=== PATIENT | male | born 1975 | race Caucasian/White ===

== ENCOUNTER 2018-04-14 12:56 | Inpatient (IN) | payer SELFPAY ==
[2018-04-14 13:46] LABS: ADD MAN DIFF? NO; HAAIG REFLEX REFLEX FILED
[2018-04-14 13:52] LABS: WHITE BLOOD COUNT 10.3 10^3/ul (4.8-10.8)
[2018-04-14 13:52] LABS: BASOPHIL # 0.1 10^3/ul (0.0-0.1); BASOPHILS % 0.5 % (0.0-2.0); EOSINOPHILS % 0.4 % (0.0-7.0); HEMATOCRIT 38.4 % (42.0-52.0); HEMOGLOBIN 13.8 g/dl (14.0-18.0); LYMPHOCYTES # 1.2 10^3/ul (0.8-2.9); LYMPHOCYTES % 11.5 % (15.0-51.0); MEAN CORPUSCULAR HEMOGLOBIN 29.9 pg (29.0-33.0); MEAN CORPUSCULAR HGB CONC 35.9 g/dl (32.0-37.0); MEAN CORPUSCULAR VOLUME 83.3 fl (82.0-101.0); MEAN PLATELET VOLUME 10.9 fl (7.4-10.4); MONOCYTE # 1.5 10^3/ul (0.3-0.9); MONOCYTES % 14.1 % (0.0-11.0); NEUTROPHIL # 7.5 10^3/ul (1.6-7.5); NEUTROPHILS % 72.8 % (39.0-77.0); PLATELET COUNT 359 10^3/UL (140-415); RED BLOOD COUNT 4.61 10^6/ul (4.70-6.10); RED CELL DISTRIBUTION WIDTH 15.5 % (11.5-14.5)
[2018-04-14 14:08] LABS: LIPASE 48 U/L (23-300)
[2018-04-14 14:08] LABS: ALBUMIN 3.5 g/dl (3.3-4.9); ALBUMIN/GLOBULIN RATIO 0.79; ALKALINE PHOSPHATASE 176 IU/L (42-121); ANION GAP 13 (8-16); BILIRUBIN,INDIRECT 2.4 mg/dl (0-1.1); BILIRUBIN,TOTAL 16.9 mg/dl (0.2-1.3); BLOOD UREA NITROGEN 9 mg/dl (7-20); CALCIUM 8.5 mg/dl (8.4-10.2); CARBON DIOXIDE 28 mmol/L (21-31); CHLORIDE 102 mmol/L (97-110); CREATININE 0.98 mg/dl (0.61-1.24); GLUCOSE 122 mg/dl (70-220); SODIUM 139 mmol/L (135-144); TOTAL PROTEIN 7.9 g/dl (6.1-8.1)
[2018-04-14 14:11] LABS: ADD UMIC YES; UR ASCORBIC ACID NEGATIVE (NEGATIVE); UR BILIRUBIN (Dip) 2+ mg/dL (NEGATIVE); UR BLOOD (Dip) NEGATIVE (NEGATIVE); UR CLARITY SLIGHTLY CLOUDY (CLEAR); UR COLOR AMBER (YELLOW); UR GLUCOSE (Dip) NEGATIVE (NEGATIVE); UR GRANULAR CAST FEW /HPF (NONE SEEN); UR HYALINE CAST FEW /HPF (NONE SEEN); UR KETONES (Dip) NEGATIVE (NEGATIVE); UR LEUKOCYTE ESTERASE (Dip) NEGATIVE Leu/ul (NEGATIVE); UR MUCUS MANY /HPF (NONE SEEN); UR NITRITE (Dip) NEGATIVE (NEGATIVE); UR RBC 2 /HPF (0-5); UR SPECIFIC GRAVITY (Dip) 1.028 (1.003-1.030); UR SQUAMOUS EPITHELIAL CELL FEW /HPF (FEW); UR TOTAL PROTEIN (Dip) 1+ mg/dl (NEGATIVE); UR UROBILINOGEN (Dip) 2+ mg/dL (NEGATIVE); UR WBC 8 /HPF (0-5); UR WBC CAST FEW /HPF (NONE SEEN)
[2018-04-14 14:18] LABS: ALANINE AMINOTRANSFERASE 2977 IU/L (13-69)
[2018-04-14 14:23] LABS: AMPHETAMINE/METHAMPHETAMINE Negative (NEGATIVE); BARBITURATES Negative (NEGATIVE); BENZODIAZEPINES Negative (NEGATIVE); CANNABINOIDS Positive (NEGATIVE); COCAINE Negative (NEGATIVE); OPIATES Negative (NEGATIVE)
[2018-04-14] MEDS: LACTATED RINGER'S 1,000 ML IV (14:29)
[2018-04-14 14:33] LABS: ASPARTATE AMINO TRANSFERASE 3066 IU/L (15-46)
[2018-04-14 14:42] LABS: HEPATITIS B SURFACE ANTIGEN POSITIVE (NEGATIVE)
[2018-04-14 14:57] LABS: HEPATITIS C VIRAL ANTIBODY NEGATIVE (NEGATIVE)
[2018-04-14 15:02] LABS: HEPATITIS B CORE ANTIBODY REACTIVE (NEGATIVE); HIV 1&2 ANTIBODY REACTIVE (NEGATIVE)
[2018-04-14] MEDS: SOD CHLORIDE 0.9% 1,000 ML IV (16:45)
[2018-04-14] MEDS ORDERED: ONDANSETRON 4 MG INJ IV (17:00)
[2018-04-14] MEDS ORDERED: DOCUSATE SODIUM 100 MG CAP PO (17:00)
[2018-04-14] MEDS ORDERED: NA PHOSPHATE/BIPHOS 133 ML ENEMA PR (17:00)
[2018-04-14] MEDS ORDERED: BISACODYL (EC) 5 MG TAB PO (17:00)
[2018-04-14] MEDS ORDERED: NACL 0.9% 3 ML SYG IV (17:00)
[2018-04-14] MEDS ORDERED: BISACODYL 10 MG SUPP PR (17:00)
[2018-04-14] MEDS ORDERED: ACETAMINOPHEN 325 MG TAB PO (17:00)
[2018-04-14] MEDS ORDERED: HYDROCODONE/APAP (5/325) TAB PO (17:00)
[2018-04-14] MEDS ORDERED: IBUPROFEN 600 MG TAB PO (17:00)
[2018-04-14] MEDS ORDERED: MAGNESIUM HYDROXIDE 30ML CUP PO (17:00)
[2018-04-14 17:19] LABS: INR 1.25; PROTIME 15.9 Sec (11.9-14.9); PT RATIO 1.2
[2018-04-14 17:33] LABS: SALICYLATE < 1.0 mg/dl (5.0-30.0)
[2018-04-14 17:52] LABS: ACETAMINOPHEN < 10.0 ug/ml (10.0-30.0)
[2018-04-14 20:17] LABS: ETHANOL < 10.0 mg/dl
[2018-04-14 21:09] LABS: HEPATITIS B SURFACE ANTIBODY POSITIVE (NEGATIVE)
[2018-04-15 06:37] LABS: INR 1.24; PROTIME 15.8 Sec (11.9-14.9); PT RATIO 1.2
[2018-04-15 06:42] LABS: IRON 175 ug/dl (35-150)
[2018-04-15 06:50] LABS: ALBUMIN/GLOBULIN RATIO 0.78; ALKALINE PHOSPHATASE 155 IU/L (42-121); ANION GAP 10 (8-16); BILIRUBIN,INDIRECT 2.3 mg/dl (0-1.1); BILIRUBIN,TOTAL 13.6 mg/dl (0.2-1.3); BLOOD UREA NITROGEN 11 mg/dl (7-20); CARBON DIOXIDE 30 mmol/L (21-31); CHLORIDE 106 mmol/L (97-110); CREATININE 0.86 mg/dl (0.61-1.24); GLUCOSE 101 mg/dl (70-220); POTASSIUM 3.9 mmol/L (3.5-5.1); SODIUM 142 mmol/L (135-144); TOTAL PROTEIN 6.8 g/dl (6.1-8.1)
[2018-04-15 06:51] LABS: % IRON SATURATION 62 % SAT (22-52); TOTAL IRON BINDING CAPACITY 282 ug/dl (241-421)
[2018-04-15 07:00] LABS: ALANINE AMINOTRANSFERASE 2547 IU/L (13-69)
[2018-04-15 07:25] LABS: ASPARTATE AMINO TRANSFERASE 2577 IU/L (15-46)
[2018-04-15 07:53] LABS: HEMOGLOBIN A1C 5.4 % (0-5.9)
[2018-04-15] MEDS: ENOXAPARIN 40 MG/0.4 ML SYG SC (09:18)
[2018-04-15] MEDS: POLYETHYLENE GLYCOL 17 GM PACKET PO (12:25)
[2018-04-15] MEDS: SOD CHLORIDE 0.45% 1,000 ML IV (13:47)
[2018-04-16 07:52] LABS: ADD MAN DIFF? NO
[2018-04-16 07:59] LABS: WHITE BLOOD COUNT 9.3 10^3/ul (4.8-10.8)
[2018-04-16 07:59] LABS: BASOPHIL # 0.1 10^3/ul (0.0-0.1); BASOPHILS % 0.9 % (0.0-2.0); EOSINOPHILS # 0.2 10^3/ul (0.0-0.5); EOSINOPHILS % 1.6 % (0.0-7.0); HEMATOCRIT 38.3 % (42.0-52.0); HEMOGLOBIN 13.5 g/dl (14.0-18.0); LYMPHOCYTES # 1.5 10^3/ul (0.8-2.9); LYMPHOCYTES % 16.1 % (15.0-51.0); MEAN CORPUSCULAR HEMOGLOBIN 29.1 pg (29.0-33.0); MEAN CORPUSCULAR HGB CONC 35.2 g/dl (32.0-37.0); MEAN CORPUSCULAR VOLUME 82.5 fl (82.0-101.0); MEAN PLATELET VOLUME 12.2 fl (7.4-10.4); MONOCYTE # 1.2 10^3/ul (0.3-0.9); MONOCYTES % 12.8 % (0.0-11.0); NEUTROPHIL # 6.3 10^3/ul (1.6-7.5); NEUTROPHILS % 68.1 % (39.0-77.0); PLATELET COUNT 353 10^3/UL (140-415); RED BLOOD COUNT 4.64 10^6/ul (4.70-6.10); RED CELL DISTRIBUTION WIDTH 15.9 % (11.5-14.5)
[2018-04-16 08:07] LABS: AMMONIA 20 umol/l (9-30)
[2018-04-16 08:20] LABS: ALBUMIN 3.6 g/dl (3.3-4.9); ALKALINE PHOSPHATASE 193 IU/L (42-121); BILIRUBIN,INDIRECT 2.6 mg/dl (0-1.1); BILIRUBIN,TOTAL 16.2 mg/dl (0.2-1.3); TOTAL PROTEIN 8.2 g/dl (6.1-8.1)
[2018-04-16] MEDS: POLYETHYLENE GLYCOL 17 GM PACKET PO (08:26)
[2018-04-16 08:28] LABS: ANION GAP 16 (8-16); BLOOD UREA NITROGEN 8 mg/dl (7-20); CALCIUM 8.8 mg/dl (8.4-10.2); CARBON DIOXIDE 29 mmol/L (21-31); CHLORIDE 101 mmol/L (97-110); GLUCOSE 79 mg/dl (70-220); MAGNESIUM 2.1 mg/dl (1.7-2.5); PHOSPHORUS 4.1 mg/dl (2.5-4.9); POTASSIUM 4.1 mmol/L (3.5-5.1); SODIUM 142 mmol/L (135-144)
[2018-04-16] MEDS: ENOXAPARIN 40 MG/0.4 ML SYG SC (08:29)
[2018-04-16] MEDS: SOD CHLORIDE 0.45% 1,000 ML IV (08:29)
[2018-04-16 09:30] LABS: ALANINE AMINOTRANSFERASE 3776 IU/L (13-69)
[2018-04-16 09:44] LABS: ASPARTATE AMINO TRANSFERASE 4529 IU/L (15-46)
[2018-04-16 12:16] LABS: HEPATITIS B SURFACE ANTIGEN REACTIVE (NON-REACTIVE)
[2018-04-17] MEDS: SOD CHLORIDE 0.45% 1,000 ML IV (04:45)
[2018-04-17 06:09] LABS: ADD MAN DIFF? NO
[2018-04-17 06:10] LABS: BASOPHIL # 0.1 10^3/ul (0.0-0.1); BASOPHILS % 0.7 % (0.0-2.0); EOSINOPHILS # 0.2 10^3/ul (0.0-0.5); EOSINOPHILS % 1.8 % (0.0-7.0); HEMATOCRIT 36.4 % (42.0-52.0); HEMOGLOBIN 13.1 g/dl (14.0-18.0); LYMPHOCYTES # 1.8 10^3/ul (0.8-2.9); LYMPHOCYTES % 20.5 % (15.0-51.0); MEAN CORPUSCULAR HEMOGLOBIN 29.2 pg (29.0-33.0); MEAN CORPUSCULAR VOLUME 81.3 fl (82.0-101.0); MEAN PLATELET VOLUME 11.2 fl (7.4-10.4); MONOCYTE # 1.1 10^3/ul (0.3-0.9); MONOCYTES % 12.3 % (0.0-11.0); NEUTROPHIL # 5.7 10^3/ul (1.6-7.5); PLATELET COUNT 354 10^3/UL (140-415); RED BLOOD COUNT 4.48 10^6/ul (4.70-6.10)
[2018-04-17 06:10] LABS: WHITE BLOOD COUNT 8.9 10^3/ul (4.8-10.8)
[2018-04-17 06:44] LABS: MAGNESIUM 2.1 mg/dl (1.7-2.5)
[2018-04-17 06:44] LABS: ALBUMIN 3.2 g/dl (3.3-4.9); ALBUMIN/GLOBULIN RATIO 0.76; ALKALINE PHOSPHATASE 172 IU/L (42-121); ANION GAP 11 (8-16); BILIRUBIN,INDIRECT 2.3 mg/dl (0-1.1); BILIRUBIN,TOTAL 13.1 mg/dl (0.2-1.3); BLOOD UREA NITROGEN 8 mg/dl (7-20); CALCIUM 8.6 mg/dl (8.4-10.2); CARBON DIOXIDE 28 mmol/L (21-31); CHLORIDE 107 mmol/L (97-110); CREATININE 0.86 mg/dl (0.61-1.24); GLUCOSE 89 mg/dl (70-220); POTASSIUM 4.1 mmol/L (3.5-5.1); SODIUM 142 mmol/L (135-144); TOTAL PROTEIN 7.4 g/dl (6.1-8.1)
[2018-04-17 07:24] LABS: ALANINE AMINOTRANSFERASE 3762 IU/L (13-69)
[2018-04-17 08:08] LABS: ASPARTATE AMINO TRANSFERASE 4395 IU/L (15-46)
[2018-04-17] MEDS: POLYETHYLENE GLYCOL 17 GM PACKET PO (08:51)
[2018-04-17] MEDS: ENOXAPARIN 40 MG/0.4 ML SYG SC (08:57)
[2018-04-17 09:36] LABS: LYMPHOCYTE - % CD4 (HELPER) 47 % (30-61); LYMPHOCYTE - %CD8 (SUPPRESSOR) 35 % (12-42); LYMPHOCYTE - ABSOLUTE 1173 cells/uL (850-3900); LYMPHOCYTE - ABSOLUTE CD4 551 cells/uL (490-1740); LYMPHOCYTE - ABSOLUTE CD8 411 cells/uL (180-1170); LYMPHOCYTE - CD4/CD8 RATIO 1.34 (0.86-5.00)
[2018-04-17] MEDS ORDERED: oxyCODONE 5 MG TAB PO (11:00)
[2018-04-17] MEDS: DIPHENHYDRAMINE 50 MG INJ IV ×2 (11:27→20:18)
[2018-04-17 18:37] LABS: EBV VIRAL CAPSID AG AB (IGG) >750.00 U/mL; EBV VIRAL CAPSID AG AB (IGM) <36.00 U/mL
[2018-04-18 06:35] LABS: MAGNESIUM 2.3 mg/dl (1.7-2.5)
[2018-04-18 06:36] LABS: ALBUMIN 3.4 g/dl (3.3-4.9); ALBUMIN/GLOBULIN RATIO 0.75; ALKALINE PHOSPHATASE 164 IU/L (42-121); ANION GAP 15 (8-16); BILIRUBIN,INDIRECT 2.3 mg/dl (0-1.1); BILIRUBIN,TOTAL 11.7 mg/dl (0.2-1.3); BLOOD UREA NITROGEN 9 mg/dl (7-20); CALCIUM 8.9 mg/dl (8.4-10.2); CARBON DIOXIDE 29 mmol/L (21-31); CHLORIDE 105 mmol/L (97-110); CREATININE 0.99 mg/dl (0.61-1.24); GLUCOSE 89 mg/dl (70-220); SODIUM 144 mmol/L (135-144); TOTAL PROTEIN 7.9 g/dl (6.1-8.1)
[2018-04-18] MEDS: POLYETHYLENE GLYCOL 17 GM PACKET PO (08:44)
[2018-04-18] MEDS: DIPHENHYDRAMINE 50 MG INJ IV ×2 (08:45→18:13)
[2018-04-18] MEDS: ENOXAPARIN 40 MG/0.4 ML SYG SC (08:46)
[2018-04-18 09:28] LABS: ALANINE AMINOTRANSFERASE 3549 IU/L (13-69); ASPARTATE AMINO TRANSFERASE 3350 IU/L (15-46)
[2018-04-19] MEDS: DIPHENHYDRAMINE 50 MG INJ IV (02:33)
[2018-04-19 06:05] LABS: ADD MAN DIFF? NO
[2018-04-19 06:08] LABS: WHITE BLOOD COUNT 9.9 10^3/ul (4.8-10.8)
[2018-04-19 06:08] LABS: BASOPHIL # 0.1 10^3/ul (0.0-0.1); BASOPHILS % 0.9 % (0.0-2.0); EOSINOPHILS # 0.2 10^3/ul (0.0-0.5); EOSINOPHILS % 2.3 % (0.0-7.0); HEMATOCRIT 36.3 % (42.0-52.0); HEMOGLOBIN 12.7 g/dl (14.0-18.0); LYMPHOCYTES # 2.4 10^3/ul (0.8-2.9); LYMPHOCYTES % 24.7 % (15.0-51.0); MEAN CORPUSCULAR HEMOGLOBIN 28.8 pg (29.0-33.0); MEAN CORPUSCULAR VOLUME 82.3 fl (82.0-101.0); MEAN PLATELET VOLUME 11.1 fl (7.4-10.4); MONOCYTE # 1.3 10^3/ul (0.3-0.9); MONOCYTES % 13.3 % (0.0-11.0); NEUTROPHIL # 5.7 10^3/ul (1.6-7.5); NEUTROPHILS % 58.1 % (39.0-77.0); PLATELET COUNT 373 10^3/UL (140-415); RED BLOOD COUNT 4.41 10^6/ul (4.70-6.10); RED CELL DISTRIBUTION WIDTH 17.3 % (11.5-14.5)
[2018-04-19 06:36] LABS: MAGNESIUM 2.2 mg/dl (1.7-2.5)
[2018-04-19 06:39] LABS: ALBUMIN 3.3 g/dl (3.3-4.9); ALBUMIN/GLOBULIN RATIO 0.78; ALKALINE PHOSPHATASE 150 IU/L (42-121); ANION GAP 11 (8-16); BILIRUBIN,INDIRECT 1.8 mg/dl (0-1.1); BLOOD UREA NITROGEN 13 mg/dl (7-20); CALCIUM 8.5 mg/dl (8.4-10.2); CARBON DIOXIDE 32 mmol/L (21-31); CHLORIDE 107 mmol/L (97-110); CREATININE 1.02 mg/dl (0.61-1.24); GLUCOSE 77 mg/dl (70-220); POTASSIUM 4.3 mmol/L (3.5-5.1); SODIUM 146 mmol/L (135-144); TOTAL PROTEIN 7.5 g/dl (6.1-8.1)
[2018-04-19 07:02] LABS: ALANINE AMINOTRANSFERASE 2313 IU/L (13-69); ASPARTATE AMINO TRANSFERASE 1478 IU/L (15-46)
[2018-04-19] MEDS: POLYETHYLENE GLYCOL 17 GM PACKET PO (08:37)
[2018-04-19] MEDS: ENOXAPARIN 40 MG/0.4 ML SYG SC (08:39)
[2018-04-19 15:31] LABS: HEPATITIS B DELTA ANTIBODY NEGATIVE
== END 2018-04-19 11:05 | disposition home or self-care (01) | DRG 443 ==
LOC: FTE 12:56 → MS2 16:50
DX: B16.9 Acute hepatitis B without delta-agent and without hepatic coma (principal); K59.00 Constipation, unspecified; Z87.891 Personal history of nicotine dependence
CPT/HCPCS: 36415; 74176; 76705; 80048; 80053; 80076; 80307; 81001; 82140; 82728; 83036; 83540; 83690; 83735; 84100; 85025; 85610; 86360; 86664; 86692; 86701; 86703; 86704; 86706; 86709; 86803; 87340; 87536; 96360; 96361; 99285-25

== ENCOUNTER 2018-07-15 12:31 | Inpatient (IN) | payer MEDICAID ==
[2018-07-15 13:19] LABS: HEMOGLOBIN 13.8 g/dl (14.0-18.0); MEAN CORPUSCULAR HEMOGLOBIN 28.6 pg (29.0-33.0); MEAN CORPUSCULAR HGB CONC 33.7 g/dl (32.0-37.0); MEAN CORPUSCULAR VOLUME 84.9 fl (82.0-101.0); MEAN PLATELET VOLUME 11.1 fl (7.4-10.4); PLATELET COUNT 130 10^3/UL (140-415); POSITIVE DIFF @See below; RED BLOOD COUNT 4.83 10^6/ul (4.70-6.10); RED CELL DISTRIBUTION WIDTH 13.5 % (11.5-14.5)
[2018-07-15 13:19] LABS: WHITE BLOOD COUNT 3.1 10^3/ul (4.8-10.8)
[2018-07-15 13:25] LABS: ADD MAN DIFF? YES
[2018-07-15 13:32] LABS: ADD UMIC YES; UR ASCORBIC ACID NEGATIVE (NEGATIVE); UR BILIRUBIN (Dip) NEGATIVE (NEGATIVE); UR BLOOD (Dip) NEGATIVE (NEGATIVE); UR CLARITY CLEAR (CLEAR); UR COLOR YELLOW (YELLOW); UR GLUCOSE (Dip) NEGATIVE (NEGATIVE); UR KETONES (Dip) TRACE mg/dL (NEGATIVE); UR LEUKOCYTE ESTERASE (Dip) NEGATIVE Leu/ul (NEGATIVE); UR NITRITE (Dip) NEGATIVE (NEGATIVE); UR RBC 0 /HPF (0-5); UR SPECIFIC GRAVITY (Dip) 1.023 (1.003-1.030); UR TOTAL PROTEIN (Dip) 1+ mg/dl (NEGATIVE); UR UROBILINOGEN (Dip) 2+ mg/dL (NEGATIVE); UR WBC 4 /HPF (0-5)
[2018-07-15] MEDS: ONDANSETRON 4 MG INJ IV (13:34)
[2018-07-15] MEDS: LIDOCAINE/MYLANTA 40 ML BTL PO (13:34)
[2018-07-15] MEDS: FAMOTIDINE 20 MG INJ IV (13:34)
[2018-07-15] MEDS: BELLADONNA/PHENOBARBITAL TAB PO (13:34)
[2018-07-15] MEDS: SOD CHLORIDE 0.9% 500 ML IV (13:35)
[2018-07-15 13:36] LABS: ALANINE AMINOTRANSFERASE 806 IU/L (13-69); ALBUMIN 3.4 g/dl (3.3-4.9); ALBUMIN/GLOBULIN RATIO 0.73; ALKALINE PHOSPHATASE 134 IU/L (42-121); ANION GAP 14 (8-16); BILIRUBIN,INDIRECT 0.2 mg/dl (0-1.1); BILIRUBIN,TOTAL 0.2 mg/dl (0.2-1.3); BLOOD UREA NITROGEN 16 mg/dl (7-20); CALCIUM 8.6 mg/dl (8.4-10.2); CARBON DIOXIDE 26 mmol/L (21-31); CHLORIDE 101 mmol/L (97-110); CREATININE 0.88 mg/dl (0.61-1.24); GLUCOSE 115 mg/dl (70-220); LIPASE 107 U/L (23-300); POTASSIUM 4.3 mmol/L (3.5-5.1); SODIUM 137 mmol/L (135-144)
[2018-07-15 13:46] LABS: AMPHETAMINE/METHAMPHETAMINE Negative (NEGATIVE); BARBITURATES Negative (NEGATIVE); BENZODIAZEPINES Negative (NEGATIVE); CANNABINOIDS Positive (NEGATIVE); COCAINE Negative (NEGATIVE); OPIATES Negative (NEGATIVE)
[2018-07-15 13:51] LABS: ASPARTATE AMINO TRANSFERASE 908 IU/L (15-46)
[2018-07-15 14:42] LABS: BAND NEUTROPHILS #M 1.1 10^3/ul (0.0-0.6); BAND NEUTROPHILS % (M) 38 % (0-4); BASOPHILS % (M) 1 % (0-2); GIANT THROMBO% (M) 2 % (0-0); LYMPHOCYTES #M 0.7 10^3/ul (0.8-2.9); LYMPHOCYTES % (M) 23 % (15-51); METAMYELOCYTES %M 1 % (0-0); MONOCYTE #M 0.1 10^3/ul (0.3-0.9); MONOCYTES % (M) 5 % (0-11); PLASMAC%(M) 1 % (0); PLATELET ESTIMATE DECREASED; SEGMENTED NEUTROPHILS (M) % 31 % (39-77); SMUDGE%M 4 % (0-0)
[2018-07-15] MEDS ORDERED: ACETAMINOPHEN 325 MG TAB PO ×2 (17:00→18:00)
[2018-07-15] MEDS ORDERED: ONDANSETRON 4 MG INJ IV (17:00)
[2018-07-15] MEDS: SOD CHLORIDE 0.9% 100 ML (17:22)
[2018-07-15] MEDS: IOHEXOL 300MG/ML 150 ML BTL (17:23)
[2018-07-15] MEDS ORDERED: NACL 0.9% 3 ML SYG IV (18:00)
[2018-07-15 19:42] LABS: LACTATE DEHYDROGENASE 911 IU/L (313-618)
[2018-07-15 20:14] LABS: HEPATITIS B SURFACE ANTIGEN NEGATIVE (NEGATIVE)
[2018-07-15 20:31] LABS: HEPATITIS B CORE ANTIBODY REACTIVE (NEGATIVE); HIV 1&2 ANTIBODY REACTIVE (NEGATIVE)
[2018-07-15 21:29] LABS: HEPATITIS B SURFACE ANTIBODY INDETERMINATE (NEGATIVE)
[2018-07-16 10:24] LABS: ADD MAN DIFF? NO
[2018-07-16 10:35] LABS: WHITE BLOOD COUNT 3.1 10^3/ul (4.8-10.8)
[2018-07-16 10:35] LABS: BASOPHILS % 0.3 % (0.0-2.0); HEMATOCRIT 39.8 % (42.0-52.0); HEMOGLOBIN 13.3 g/dl (14.0-18.0); LYMPHOCYTES # 0.8 10^3/ul (0.8-2.9); LYMPHOCYTES % 24.2 % (15.0-51.0); MEAN CORPUSCULAR HEMOGLOBIN 28.5 pg (29.0-33.0); MEAN CORPUSCULAR HGB CONC 33.4 g/dl (32.0-37.0); MEAN CORPUSCULAR VOLUME 85.4 fl (82.0-101.0); MEAN PLATELET VOLUME 11.7 fl (7.4-10.4); MONOCYTE # 0.3 10^3/ul (0.3-0.9); MONOCYTES % 8.4 % (0.0-11.0); NEUTROPHIL # 2.1 10^3/ul (1.6-7.5); NEUTROPHILS % 66.8 % (39.0-77.0); PLATELET COUNT 127 10^3/UL (140-415); POSITIVE DIFF @See below; RED BLOOD COUNT 4.66 10^6/ul (4.70-6.10); RED CELL DISTRIBUTION WIDTH 13.4 % (11.5-14.5)
[2018-07-16 11:16] LABS: ALANINE AMINOTRANSFERASE 579 IU/L (13-69); ALBUMIN 3.1 g/dl (3.3-4.9); ALKALINE PHOSPHATASE 123 IU/L (42-121); ANION GAP 11 (8-16); ASPARTATE AMINO TRANSFERASE 583 IU/L (15-46); BILIRUBIN,INDIRECT 0.3 mg/dl (0-1.1); BILIRUBIN,TOTAL 0.3 mg/dl (0.2-1.3); BLOOD UREA NITROGEN 13 mg/dl (7-20); CALCIUM 8.4 mg/dl (8.4-10.2); CARBON DIOXIDE 27 mmol/L (21-31); CHLORIDE 100 mmol/L (97-110); CREATININE 0.85 mg/dl (0.61-1.24); GLUCOSE 96 mg/dl (70-220); POTASSIUM 4.1 mmol/L (3.5-5.1); SODIUM 134 mmol/L (135-144); TOTAL PROTEIN 7.5 g/dl (6.1-8.1)
[2018-07-16 12:20] LABS: BAND NEUTROPHILS #M 0.9 10^3/ul (0.0-0.6); BAND NEUTROPHILS % (M) 30 % (0-4); GIANT THROMBO% (M) 1 % (0-0); LYMPHOCYTES #M 0.3 10^3/ul (0.8-2.9); LYMPHOCYTES % (M) 12 % (15-51); MONOCYTE #M 0.3 10^3/ul (0.3-0.9); MONOCYTES % (M) 11 % (0-11); PLATELET ESTIMATE DECREASED; REACTIVE LYMPHOCYTES #M 0.1 10^3/ul (0.0-0.0); REACTIVE LYMPHOCYTES% (M) 4 % (0-0); SEG NEUT #M 1.4 10^3/ul (1.6-7.5); SEGMENTED NEUTROPHILS (M) % 43 % (39-77); SMUDGE%M 14 % (0-0)
[2018-07-17 11:16] LABS: LYMPHOCYTE - % CD4 (HELPER) 39 % (30-61); LYMPHOCYTE - %CD8 (SUPPRESSOR) 45 % (12-42); LYMPHOCYTE - ABSOLUTE 897 cells/uL (850-3900); LYMPHOCYTE - ABSOLUTE CD4 353 cells/uL (490-1740); LYMPHOCYTE - ABSOLUTE CD8 401 cells/uL (180-1170); LYMPHOCYTE - CD4/CD8 RATIO 0.88 (0.86-5.00)
[2018-07-17 16:09] LABS: RAPID PLASMA REAGIN NONREACTIVE (NR)
[2018-07-17 19:37] LABS: EBV NUCLEAR AG (EBNA) AB (IGG) >600.00 U/mL; EBV VIRAL CAPSID AG AB (IGG) >750.00 U/mL; EBV VIRAL CAPSID AG AB (IGM) <36.00 U/mL
[2018-07-18 17:02] LABS: NIL 0.11 IU/mL; QUANTIFERON(R)-TB GOLD NEGATIVE (NEGATIVE); TB-NIL <0.00 IU/mL
[2018-07-23 20:03] LABS: HEPATITIS B DELTA ANTIBODY POSITIVE
== END 2018-07-17 11:42 | disposition home or self-care (01) | DRG 977 ==
LOC: E/R 12:31 → PP2 16:51
DX: B20 Human immunodeficiency virus [HIV] disease (principal); B16.9 Acute hepatitis B without delta-agent and without hepatic coma; F12.10 Cannabis abuse, uncomplicated; F14.10 Cocaine abuse, uncomplicated; R59.1 Generalized enlarged lymph nodes
CPT/HCPCS: 36415; 74177; 80053; 80307; 81001; 83605; 83615; 83690; 85025; 86360; 86480; 86592; 86664; 86692; 86701; 86703; 86704; 86706; 87040; 87340; 87536; 96374; 96375; 99285-25

== ENCOUNTER 2019-05-14 16:45 | Inpatient (IN) | payer MEDICAID, OTHER ==
[2019-05-14] MEDS: VANCOMYCIN 1 GM (PMX) 250 ML IVPB (18:21)
[2019-05-14] MEDS: IODIXANOL LOCM 100 ML BTL (18:29)
[2019-05-14] MEDS: SODIUM CHLORIDE 0.9% 1L BAG IV* (18:29)
[2019-05-14 18:38] LABS: ABNORMAL IP MESSAGE 1; HEMATOCRIT 36.6 % (42.0-52.0); HEMOGLOBIN 12.3 g/dl (14.0-18.0); MEAN CORPUSCULAR HGB CONC 33.6 g/dl (32.0-37.0); MEAN CORPUSCULAR VOLUME 80.3 fl (82.0-101.0); MEAN PLATELET VOLUME 10.7 fl (7.4-10.4); PLATELET COUNT 353 10^3/UL (140-415); POSITIVE DIFF @See below; RED BLOOD COUNT 4.56 10^6/ul (4.70-6.10); RED CELL DISTRIBUTION WIDTH 14.6 % (11.5-14.5)
[2019-05-14 18:43] LABS: ADD MAN DIFF? YES
[2019-05-14] MEDS: SOD CHLORIDE 0.9% 100 ML (18:49)
[2019-05-14] MEDS: IOHEXOL 300MG/ML 150 ML BTL (18:49)
[2019-05-14] MEDS: PIPER-TAZO 3.375 GM IV (PMX) 100 ML IVPB ×2 (18:51→23:37)
[2019-05-14] MEDS: FENTAnyl 50 MCG/ML VIAL IV (18:51)
[2019-05-14 18:54] LABS: ALANINE AMINOTRANSFERASE 22 IU/L (13-69); ALBUMIN 3.7 g/dl (3.3-4.9); ALBUMIN/GLOBULIN RATIO 0.84; ALKALINE PHOSPHATASE 140 IU/L (42-121); ANION GAP 20 (5-13); ASPARTATE AMINO TRANSFERASE 53 IU/L (15-46); BILIRUBIN,INDIRECT 0.7 mg/dl (0-1.1); BILIRUBIN,TOTAL 0.7 mg/dl (0.2-1.3); BLOOD UREA NITROGEN 44 mg/dl (7-20); CALCIUM 8.8 mg/dl (8.4-10.2); CARBON DIOXIDE 21 mmol/L (21-31); CHLORIDE 91 mmol/L (97-110); GLUCOSE 89 mg/dl (70-220); POTASSIUM 4.9 mmol/L (3.5-5.1); SODIUM 132 mmol/L (135-144); TOTAL PROTEIN 8.1 g/dl (6.1-8.1)
[2019-05-14 18:57] LABS: INR 1.18; PROTIME 15.1 Sec (11.9-14.9); PT RATIO 1.2
[2019-05-14 18:58] LABS: PARTIAL THROMBOPLASTIN TIME 40.7 Sec (23.0-35.0)
[2019-05-14 19:00] LABS: Estimated GFR 33 mL/min (>60)
[2019-05-14 19:06] LABS: TROPONIN-I 0.043 ng/ml (0.000-0.120)
[2019-05-14 19:07] LABS: CREATININE 2.19 mg/dl (0.61-1.24)
[2019-05-14] MEDS: CLINDAMYCIN 900 MG/D5W (PMX) 50 ML IVPB (19:44)
[2019-05-14 19:59] LABS: ADD UMIC YES; UR ASCORBIC ACID NEGATIVE (NEGATIVE); UR BACTERIA FEW /HPF (NONE SEEN); UR BILIRUBIN (Dip) NEGATIVE (NEGATIVE); UR BLOOD (Dip) 1+ mg/dL (NEGATIVE); UR CLARITY CLOUDY (CLEAR); UR COLOR YELLOW (YELLOW); UR GLUCOSE (Dip) NEGATIVE (NEGATIVE); UR GRANULAR CAST FEW /HPF (NONE SEEN); UR KETONES (Dip) NEGATIVE (NEGATIVE); UR LEUKOCYTE ESTERASE (Dip) NEGATIVE Leu/ul (NEGATIVE); UR NITRITE (Dip) NEGATIVE (NEGATIVE); UR RBC 0 /HPF (0-5); UR SPECIFIC GRAVITY (Dip) 1.026 (1.003-1.030); UR TOTAL PROTEIN (Dip) 1+ mg/dl (NEGATIVE); UR UROBILINOGEN (Dip) NEGATIVE (NEGATIVE); UR WBC 5 /HPF (0-5)
[2019-05-14 20:12] LABS: AMPHETAMINE/METHAMPHETAMINE Negative (NEGATIVE); BARBITURATES Negative (NEGATIVE); BENZODIAZEPINES Negative (NEGATIVE); CANNABINOIDS Positive (NEGATIVE); COCAINE Negative (NEGATIVE); OPIATES Negative (NEGATIVE)
[2019-05-14] MEDS: POLYMYXIN/BACITRACIN 1L IRRIG IRR (20:20)
[2019-05-14 20:25] LABS: ANISOCYTOSIS 2+ (0-0); BAND NEUTROPHILS #M 3.5 10^3/ul (0.0-0.6); BAND NEUTROPHILS % (M) 27 % (0-4); BURR CELLS 3+ (0-0); ERYTHROBLAST% (NRBC) (M) 1 % (0-0); GIANT THROMBO% (M) 2 % (0-0); LYMPHOCYTES #M 0.9 10^3/ul (0.8-2.9); LYMPHOCYTES % (M) 7 % (15-51); METAMYELOCYTES #M 0.1 10^3/ul (0.0-0.0); METAMYELOCYTES %M 1 % (0-0); MONOCYTE #M 0.9 10^3/ul (0.3-0.9); MONOCYTES % (M) 7 % (0-11); MYELOCYTES #M 0.2 10^3/ul (0.0-0.0); MYELOCYTES % (M) 2 % (0-0); POIKILOCYTOSIS 3+ (0-0); POLYCHROMASIA 1+ (0-0); SEG NEUT #M 7.7 10^3/ul (1.6-7.5); SEGMENTED NEUTROPHILS (M) % 56 % (39-77); SMUDGE%M 18 % (0-0)
[2019-05-14] MEDS ORDERED: FENTAnyl 50 MCG/ML VIAL ×4 (20:25→21:31)
[2019-05-14] MEDS ORDERED: ROCURONIUM 50 MG INJ (20:25)
[2019-05-14] MEDS ORDERED: PROPOFOL 20 ML (20:25)
[2019-05-14] MEDS ORDERED: SUCCINYLCHOLINE CHLORIDE 100 MG/5 ML SYG IV (20:25)
[2019-05-14] MEDS ORDERED: LIDOCAINE 100 MG SYRINGE (20:25)
[2019-05-14] MEDS ORDERED: ONDANSETRON 4 MG INJ IV ×2 (20:30→22:00)
[2019-05-14] MEDS ORDERED: DIPHENHYDRAMINE 50 MG INJ IV ×2 (20:30→22:00)
[2019-05-14] MEDS ORDERED: ALBUTEROL 0.083% (NEB) 2.5 MG/3 ML AMP HHN ×2 (20:30→22:00)
[2019-05-14] MEDS ORDERED: FENTAnyl 50 MCG/ML VIAL IV ×6 (20:30→22:00)
[2019-05-14] MEDS ORDERED: MEPERIDINE 25 MG INJ IV ×2 (20:30→22:00)
[2019-05-14] MEDS ORDERED: METOCLOPRAMIDE 10 MG INJ IV ×2 (20:30→22:00)
[2019-05-14] MEDS ORDERED: HYDROmorphONE 1 MG/5 ML IV SYRINGE IV ×3 (20:30)
[2019-05-14] MEDS ORDERED: VANCOMYCIN IV PER PHARMACY XX (21:00)
[2019-05-14] MEDS ORDERED: SUGAMMADEX SODIUM 200 MG/2 ML VIAL IV (21:27)
[2019-05-14] MEDS ORDERED: MIDAZOLAM 1 MG/ML 2 ML INJ (21:34)
[2019-05-14] MEDS ORDERED: HYDROmorphONE 0.5 MG/0.5 ML SYG IV ×3 (22:00)
[2019-05-14 22:46] LABS: LACTIC ACID 4.9 mmol/L (0.5-2.0)
[2019-05-15] MEDS: SOD CHLORIDE 0.9% 1,000 ML IV ×6 (00:01→19:07)
[2019-05-15] MEDS: VANCOMYCIN HCL 1.25 GM in SOD CHLORIDE 0.9% 250 ML IVPB (00:01)
[2019-05-15 01:26] LABS: LACTIC ACID 3.1 mmol/L (0.5-2.0)
[2019-05-15] MEDS: ACETAMINOPHEN 650MG/20.3ML CUP PO ×3 (04:27→21:03)
[2019-05-15 05:01] LABS: ABNORMAL IP MESSAGE 1; HEMATOCRIT 31.1 % (42.0-52.0); HEMOGLOBIN 10.2 g/dl (14.0-18.0); MEAN CORPUSCULAR HEMOGLOBIN 27.1 pg (29.0-33.0); MEAN CORPUSCULAR HGB CONC 32.8 g/dl (32.0-37.0); MEAN CORPUSCULAR VOLUME 82.5 fl (82.0-101.0); MEAN PLATELET VOLUME 10.8 fl (7.4-10.4); PLATELET COUNT 298 10^3/UL (140-415); POSITIVE DIFF @See below; RED BLOOD COUNT 3.77 10^6/ul (4.70-6.10)
[2019-05-15 05:01] LABS: WHITE BLOOD COUNT 7.6 10^3/ul (4.8-10.8)
[2019-05-15 05:16] LABS: ADD MAN DIFF? YES
[2019-05-15] MEDS: PANTOPRAZOLE 40 MG INJ IV (05:22)
[2019-05-15] MEDS: PIPER-TAZO 3.375 GM IV (PMX) 100 ML IVPB ×4 (05:22→23:42)
[2019-05-15 05:27] LABS: ALANINE AMINOTRANSFERASE 24 IU/L (13-69); ALBUMIN 2.6 g/dl (3.3-4.9); ALBUMIN/GLOBULIN RATIO 0.74; ALKALINE PHOSPHATASE 103 IU/L (42-121); ANION GAP 11 (5-13); ASPARTATE AMINO TRANSFERASE 52 IU/L (15-46); BILIRUBIN,INDIRECT 0.6 mg/dl (0-1.1); BILIRUBIN,TOTAL 0.6 mg/dl (0.2-1.3); BLOOD UREA NITROGEN 36 mg/dl (7-20); CALCIUM 7.5 mg/dl (8.4-10.2); CARBON DIOXIDE 18 mmol/L (21-31); CHLORIDE 104 mmol/L (97-110); CREATININE 1.41 mg/dl (0.61-1.24); Estimated GFR 55 mL/min (>60); GLUCOSE 96 mg/dl (70-220); POTASSIUM 4.7 mmol/L (3.5-5.1); SODIUM 133 mmol/L (135-144); TOTAL PROTEIN 6.1 g/dl (6.1-8.1)
[2019-05-15] MEDS: CLINDAMYCIN 600 MG/D5W (PMX) 50 ML IVPB ×3 (06:34→21:03)
[2019-05-15 08:16] LABS: ANISOCYTOSIS 1+ (0-0); BAND NEUTROPHILS #M 2.8 10^3/ul (0.0-0.6); BAND NEUTROPHILS % (M) 38 % (0-4); BURR CELLS 2+ (0-0); EOSINOPHILS % (M) 1 % (0-7); LYMPHOCYTES #M 1.2 10^3/ul (0.8-2.9); LYMPHOCYTES % (M) 16 % (15-51); MONOCYTE #M 0.3 10^3/ul (0.3-0.9); MONOCYTES % (M) 4 % (0-11); PLATELET ESTIMATE NORMAL; POIKILOCYTOSIS 3+ (0-0); POLYCHROMASIA 3+ (0-0); REACTIVE LYMPHOCYTES #M 0.2 10^3/ul (0.0-0.0); REACTIVE LYMPHOCYTES% (M) 3 % (0-0); SEG NEUT #M 3.1 10^3/ul (1.6-7.5); SEGMENTED NEUTROPHILS (M) % 38 % (39-77); SMUDGE%M 7 % (0-0)
[2019-05-15] MEDS: morphine 4 MG/ML VIAL IV ×3 (09:50→21:03)
[2019-05-15] MEDS ORDERED: PHENYLephrine 20MG IN 250 ML 250 ML IV (10:00)
[2019-05-15] MEDS: VANCOMYCIN 750 MG (PMX) 250 ML IVPB ×2 (12:14→23:42)
[2019-05-15 13:00] LABS: CREATININE,URINE RANDOM 29.31 mg/dl (20-370)
[2019-05-15 13:10] LABS: SODIUM,URINE RANDOM < 13 mmol/L (30-90)
[2019-05-15] MEDS ORDERED: VANCOMYCIN HCL 1.25 GM in SOD CHLORIDE 0.9% 250 ML IVPB (16:00)
[2019-05-16] MEDS: SOD CHLORIDE 0.9% 1,000 ML IV ×2 (03:04→17:37)
[2019-05-16] MEDS: morphine 4 MG/ML VIAL IV ×4 (03:04→21:27)
[2019-05-16 05:29] LABS: ABNORMAL IP MESSAGE 1; HEMATOCRIT 26.2 % (42.0-52.0); HEMOGLOBIN 8.9 g/dl (14.0-18.0); MEAN CORPUSCULAR HEMOGLOBIN 26.8 pg (29.0-33.0); MEAN CORPUSCULAR VOLUME 78.9 fl (82.0-101.0); MEAN PLATELET VOLUME 10.9 fl (7.4-10.4); PLATELET COUNT 329 10^3/UL (140-415); POSITIVE DIFF @See below; RED BLOOD COUNT 3.32 10^6/ul (4.70-6.10); RED CELL DISTRIBUTION WIDTH 14.8 % (11.5-14.5)
[2019-05-16 05:29] LABS: WHITE BLOOD COUNT 15.2 10^3/ul (4.8-10.8)
[2019-05-16] MEDS: PIPER-TAZO 3.375 GM IV (PMX) 100 ML IVPB ×3 (05:31→17:36)
[2019-05-16] MEDS: CLINDAMYCIN 600 MG/D5W (PMX) 50 ML IVPB ×3 (05:31→22:00)
[2019-05-16] MEDS: PANTOPRAZOLE 40 MG INJ IV (05:31)
[2019-05-16 05:33] LABS: ADD MAN DIFF? YES
[2019-05-16 06:03] LABS: ANION GAP 9 (5-13); BLOOD UREA NITROGEN 21 mg/dl (7-20); CALCIUM 7.5 mg/dl (8.4-10.2); CARBON DIOXIDE 19 mmol/L (21-31); CHLORIDE 105 mmol/L (97-110); CREATININE 1.13 mg/dl (0.61-1.24); Estimated GFR > 60 mL/min (>60); GLUCOSE 57 mg/dl (70-220); MAGNESIUM 2.2 mg/dl (1.7-2.5); PHOSPHORUS 2.6 mg/dl (2.5-4.9); POTASSIUM 4.3 mmol/L (3.5-5.1); SODIUM 133 mmol/L (135-144)
[2019-05-16 07:18] LABS: ANISOCYTOSIS 1+ (0-0); BAND NEUTROPHILS #M 6.3 10^3/ul (0.0-0.6); BAND NEUTROPHILS % (M) 42 % (0-4); BURR CELLS 1+ (0-0); EOSINOPHILS % (M) 1 % (0-7); LYMPHOCYTES #M 1.2 10^3/ul (0.8-2.9); LYMPHOCYTES % (M) 8 % (15-51); MONOCYTE #M 0.7 10^3/ul (0.3-0.9); MONOCYTES % (M) 5 % (0-11); PLATELET ESTIMATE NORMAL; POIKILOCYTOSIS 2+ (0-0); REACTIVE LYMPHOCYTES #M 0.9 10^3/ul (0.0-0.0); REACTIVE LYMPHOCYTES% (M) 6 % (0-0); SEG NEUT #M 6.7 10^3/ul (1.6-7.5); SEGMENTED NEUTROPHILS (M) % 38 % (39-77); SMUDGE%M 14 % (0-0)
[2019-05-16 11:20] LABS: VANCOMYCIN,TROUGH 6.3 ug/ml (10.0-20.0)
[2019-05-16] MEDS: ACETAMINOPHEN 650MG/20.3ML CUP PO ×2 (12:24→21:27)
[2019-05-16] MEDS: VANCOMYCIN HCL 1.25 GM in SOD CHLORIDE 0.9% 250 ML IVPB (12:56)
[2019-05-16 15:56] LABS: CREATININE, RANDOM URINE 35 mg/dL (20-320); MICROALBUMIN 1.7 mg/dL; MICROALBUMIN/CREATININE RATIO 49 (<30)
[2019-05-16 16:24] LABS: HIV 1&2 ANTIBODY REACTIVE (NEGATIVE)
[2019-05-16] MEDS ORDERED: LIDOCAINE 2% (SDV) 5 ML INJ (22:24)
[2019-05-16] MEDS ORDERED: PROPOFOL 20 ML (22:24)
[2019-05-16] MEDS ORDERED: ROCURONIUM 50 MG INJ ×2 (22:24→23:13)
[2019-05-16] MEDS ORDERED: EPINEPHrine 4 MG in SOD CHLORIDE 0.9% 246 ML IV (22:30)
[2019-05-16] MEDS ORDERED: PHENYLephrine 80 MG in DEXTROSE 5% 242 ML IV (22:30)
[2019-05-16] MEDS ORDERED: PHENYLephrine 20MG IN 250 ML 250 ML IV (22:30)
[2019-05-16] MEDS ORDERED: POLYMYXIN B 500000 UNIT INJ (22:38)
[2019-05-16] MEDS ORDERED: morphine 10 MG INJ (23:13)
[2019-05-16] MEDS ORDERED: MIDAZOLAM 1 MG/ML 2 ML INJ IV (23:30)
[2019-05-16] MEDS ORDERED: DIPHENHYDRAMINE 50 MG INJ IV (23:30)
[2019-05-16] MEDS ORDERED: EPHEDrine 25 MG/5 ML SYG IV (23:30)
[2019-05-16] MEDS ORDERED: morphine 2 MG INJ IV (23:30)
[2019-05-16] MEDS ORDERED: MEPERIDINE 25 MG INJ IV (23:30)
[2019-05-16] MEDS ORDERED: morphine 10 MG INJ IV (23:30)
[2019-05-16] MEDS ORDERED: LABETALOL HCL 20MG INJ IV (23:30)
[2019-05-16] MEDS ORDERED: hydrALAzine 20 MG INJ IV (23:30)
[2019-05-16] MEDS ORDERED: ALBUTEROL 0.083% (NEB) 2.5 MG/3 ML AMP HHN (23:30)
[2019-05-17] MEDS: PROPOFOL 100 ML IV ×2 (00:14→06:27)
[2019-05-17] MEDS: SOD CHLORIDE 0.9% 1,000 ML IV ×7 (00:27→21:35)
[2019-05-17] MEDS: morphine 2 MG INJ IV (00:37)
[2019-05-17] MEDS: morphine 4 MG/ML VIAL IV ×4 (00:39→18:57)
[2019-05-17] MEDS: PIPER-TAZO 3.375 GM IV (PMX) 100 ML IVPB ×4 (00:40→18:37)
[2019-05-17 00:45] LABS: AADO2 Arterial 215.8 mmHg (7.0-24.0); Allen Test ACCEPTAB; Arterial Base Excess -6.7 mmol/L (-3.0-3); Arterial COHb 0.4 % (0.0-3.0); Arterial Fraction of Oxyhgb 94.5 % (93.0-99.0); Arterial HCO3 20.1 mmol/L (22.0-26.0); Arterial MetHb 0.1 % (0.0-1.5); Arterial pCO2 45.7 mmhg (35-45); MODE VENT - AC; Site Left Radial
[2019-05-17] MEDS: FENTAnyl (DRIP) 1000 mcg/100mL 100 ML IV ×2 (01:20→11:26)
[2019-05-17] MEDS: VANCOMYCIN HCL 1.25 GM in SOD CHLORIDE 0.9% 250 ML IVPB ×3 (01:40→13:53)
[2019-05-17] MEDS: LORAZEPAM 2 MG INJ IV (02:22)
[2019-05-17] MEDS: MIDAZOLAM (DRIP) 50 mg/50 mL 50 ML IV (03:13)
[2019-05-17 05:32] LABS: HEMATOCRIT 22.5 % (42.0-52.0); HEMOGLOBIN 7.6 g/dl (14.0-18.0); MEAN CORPUSCULAR HEMOGLOBIN 27.4 pg (29.0-33.0); MEAN CORPUSCULAR HGB CONC 33.8 g/dl (32.0-37.0); MEAN CORPUSCULAR VOLUME 81.2 fl (82.0-101.0); MEAN PLATELET VOLUME 10.8 fl (7.4-10.4); PLATELET COUNT 299 10^3/UL (140-415); POSITIVE DIFF @See below; RED BLOOD COUNT 2.77 10^6/ul (4.70-6.10); RED CELL DISTRIBUTION WIDTH 15.2 % (11.5-14.5)
[2019-05-17 05:32] LABS: WHITE BLOOD COUNT 18.3 10^3/ul (4.8-10.8)
[2019-05-17 05:39] LABS: ADD MAN DIFF? YES
[2019-05-17] MEDS: PANTOPRAZOLE 40 MG INJ IV (06:21)
[2019-05-17] MEDS: CLINDAMYCIN 600 MG/D5W (PMX) 50 ML IVPB ×3 (06:36→21:34)
[2019-05-17 06:40] LABS: ANION GAP 9 (5-13); Estimated GFR > 60 mL/min (>60)
[2019-05-17 06:44] LABS: BLOOD UREA NITROGEN 19 mg/dl (7-20); CALCIUM 7.8 mg/dl (8.4-10.2); CARBON DIOXIDE 21 mmol/L (21-31); CHLORIDE 106 mmol/L (97-110); CREATININE 1.25 mg/dl (0.61-1.24); GLUCOSE 82 mg/dl (70-220); MAGNESIUM 2.1 mg/dl (1.7-2.5); PHOSPHORUS 5.8 mg/dl (2.5-4.9); POTASSIUM 4.3 mmol/L (3.5-5.1); SODIUM 136 mmol/L (135-144)
[2019-05-17 07:27] LABS: ANISOCYTOSIS 1+ (0-0); BAND NEUTROPHILS #M 5.4 10^3/ul (0.0-0.6); BAND NEUTROPHILS % (M) 30 % (0-4); BURR CELLS 3+ (0-0); ERYTHROBLAST% (NRBC) (M) 1 % (0-0); GIANT THROMBO% (M) 7 % (0-0); LYMPHOCYTES #M 0.9 10^3/ul (0.8-2.9); LYMPHOCYTES % (M) 5 % (15-51); MONOCYTE #M 2.3 10^3/ul (0.3-0.9); MONOCYTES % (M) 13 % (0-11); PLATELET ESTIMATE NORMAL; POIKILOCYTOSIS 2+ (0-0); REACTIVE LYMPHOCYTES #M 0.3 10^3/ul (0.0-0.0); REACTIVE LYMPHOCYTES% (M) 2 % (0-0); SEG NEUT #M 10.1 10^3/ul (1.6-7.5); SEGMENTED NEUTROPHILS (M) % 50 % (39-77); SMUDGE%M 41 % (0-0)
[2019-05-17] MEDS ORDERED: NORepinephrine 8MG/250 ML (PMX 250 ML IV (08:30)
[2019-05-17 13:41] LABS: LYMPHOCYTE - % CD4 (HELPER) 12 % (30-61); LYMPHOCYTE - %CD8 (SUPPRESSOR) 75 % (12-42); LYMPHOCYTE - ABSOLUTE 1860 cells/uL (850-3900); LYMPHOCYTE - ABSOLUTE CD4 224 cells/uL (490-1740); LYMPHOCYTE - ABSOLUTE CD8 1401 cells/uL (180-1170); LYMPHOCYTE - CD4/CD8 RATIO 0.16 (0.86-5.00)
[2019-05-17 14:56] LABS: IMMEDIATE SPIN CROSSMATCH 1 1
[2019-05-18] MEDS: PIPER-TAZO 3.375 GM IV (PMX) 100 ML IVPB ×2 (00:20→06:15)
[2019-05-18] MEDS: VANCOMYCIN HCL 1.25 GM in SOD CHLORIDE 0.9% 250 ML IVPB (01:30)
[2019-05-18 01:42] LABS: VANCOMYCIN,TROUGH 9.7 ug/ml (10.0-20.0)
[2019-05-18] MEDS: morphine 2 MG INJ IV ×3 (03:16→21:34)
[2019-05-18 05:01] LABS: ADD MAN DIFF? NO
[2019-05-18 05:16] LABS: WHITE BLOOD COUNT 21.8 10^3/ul (4.8-10.8)
[2019-05-18 05:16] LABS: BASOPHIL # 0.1 10^3/ul (0.0-0.1); BASOPHILS % 0.4 % (0.0-2.0); EOSINOPHILS # 0.1 10^3/ul (0.0-0.5); EOSINOPHILS % 0.6 % (0.0-7.0); HEMATOCRIT 23.3 % (42.0-52.0); HEMOGLOBIN 7.9 g/dl (14.0-18.0); LYMPHOCYTES # 2.4 10^3/ul (0.8-2.9); LYMPHOCYTES % 10.8 % (15.0-51.0); MEAN CORPUSCULAR HEMOGLOBIN 27.7 pg (29.0-33.0); MEAN CORPUSCULAR HGB CONC 33.9 g/dl (32.0-37.0); MEAN CORPUSCULAR VOLUME 81.8 fl (82.0-101.0); MEAN PLATELET VOLUME 10.5 fl (7.4-10.4); MONOCYTES % 4.5 % (0.0-11.0); NEUTROPHIL # 17.3 10^3/ul (1.6-7.5); NEUTROPHILS % 79.3 % (39.0-77.0); NUCLEATED RED BLOOD CELLS% 0.2 /100WBC (0.0-0.0); PLATELET COUNT 303 10^3/UL (140-415); POSITIVE DIFF @See below; RED BLOOD COUNT 2.85 10^6/ul (4.70-6.10); RED CELL DISTRIBUTION WIDTH 15.4 % (11.5-14.5)
[2019-05-18 05:36] LABS: ANION GAP 8 (5-13); BLOOD UREA NITROGEN 14 mg/dl (7-20); CALCIUM 7.5 mg/dl (8.4-10.2); CARBON DIOXIDE 23 mmol/L (21-31); CHLORIDE 107 mmol/L (97-110); CREATININE 1.04 mg/dl (0.61-1.24); Estimated GFR > 60 mL/min (>60); GLUCOSE 61 mg/dl (70-220); MAGNESIUM 1.7 mg/dl (1.7-2.5); PHOSPHORUS 3.7 mg/dl (2.5-4.9); SODIUM 138 mmol/L (135-144)
[2019-05-18] MEDS: morphine 4 MG/ML VIAL IV (06:15)
[2019-05-18] MEDS: CLINDAMYCIN 600 MG/D5W (PMX) 50 ML IVPB (06:15)
[2019-05-18] MEDS: PANTOPRAZOLE 40 MG INJ IV (06:16)
[2019-05-18 08:11] LABS: ANISOCYTOSIS 1+ (0-0); BAND NEUTROPHILS #M 2.1 10^3/ul (0.0-0.6); BAND NEUTROPHILS % (M) 10 % (0-4); BURR CELLS 1+ (0-0); EOSINOPHILS % (M) 3 % (0-7); LYMPHOCYTES #M 0.8 10^3/ul (0.8-2.9); LYMPHOCYTES % (M) 4 % (15-51); MONOCYTE #M 0.8 10^3/ul (0.3-0.9); MONOCYTES % (M) 4 % (0-11); PLATELET ESTIMATE NORMAL; POIKILOCYTOSIS 1+ (0-0); REACTIVE LYMPHOCYTES #M 0.2 10^3/ul (0.0-0.0); REACTIVE LYMPHOCYTES% (M) 1 % (0-0); SEG NEUT #M 17.5 10^3/ul (1.6-7.5); SEGMENTED NEUTROPHILS (M) % 78 % (39-77); SMUDGE%M 1 % (0-0); TARGET CELLS 1+ (0-0)
[2019-05-18] MEDS: MAGNESIUM SULFATE 2 GM/50 ML 50 ML IVPB (09:53)
[2019-05-18] MEDS: SOD CHLORIDE 0.9% 1,000 ML IV ×2 (09:54→17:37)
[2019-05-18] MEDS: TRIMETHOPRIM/SULFAMETHOX (DS) TAB PO ×2 (11:30→21:35)
[2019-05-18] MEDS: VANCOMYCIN HCL 1.5 GM in SOD CHLORIDE 0.9% 250 ML IVPB (13:14)
[2019-05-18] MEDS: metroNIDAZOLE 500 MG/NS (PMX) 100 ML IVPB ×2 (13:56→21:35)
[2019-05-18] MEDS ORDERED: MIDAZOLAM 1 MG/ML 2 ML INJ (19:05)
[2019-05-18] MEDS ORDERED: BACITRACIN 50000 UNITS INJ (19:16)
[2019-05-18] MEDS ORDERED: POLYMYXIN B 500000 UNIT INJ (19:18)
[2019-05-18] MEDS ORDERED: HYDROmorphONE 2 MG/ML SYG (20:10)
[2019-05-18] MEDS ORDERED: SUGAMMADEX SODIUM 200 MG/2 ML VIAL IV (20:13)
[2019-05-18] MEDS ORDERED: ONDANSETRON 4 MG INJ (20:20)
[2019-05-18] MEDS ORDERED: DILTIAZEM 25 MG INJ IV (23:30)
[2019-05-19] MEDS: VANCOMYCIN HCL 1.5 GM in SOD CHLORIDE 0.9% 250 ML IVPB ×2 (01:22→14:16)
[2019-05-19] MEDS: morphine 2 MG INJ IV ×8 (01:29→22:29)
[2019-05-19] MEDS: PANTOPRAZOLE 40 MG INJ IV (05:21)
[2019-05-19] MEDS: metroNIDAZOLE 500 MG/NS (PMX) 100 ML IVPB ×3 (05:21→22:29)
[2019-05-19 06:03] LABS: ADD MAN DIFF? NO
[2019-05-19 06:14] LABS: BASOPHILS % 0.2 % (0.0-2.0); EOSINOPHILS # 0.1 10^3/ul (0.0-0.5); EOSINOPHILS % 0.5 % (0.0-7.0); HEMATOCRIT 23.3 % (42.0-52.0); HEMOGLOBIN 7.9 g/dl (14.0-18.0); LYMPHOCYTES # 2.3 10^3/ul (0.8-2.9); LYMPHOCYTES % 12.3 % (15.0-51.0); MEAN CORPUSCULAR HEMOGLOBIN 27.4 pg (29.0-33.0); MEAN CORPUSCULAR HGB CONC 33.9 g/dl (32.0-37.0); MEAN CORPUSCULAR VOLUME 80.9 fl (82.0-101.0); MEAN PLATELET VOLUME 10.2 fl (7.4-10.4); MONOCYTE # 0.7 10^3/ul (0.3-0.9); MONOCYTES % 3.6 % (0.0-11.0); NEUTROPHIL # 14.9 10^3/ul (1.6-7.5); NUCLEATED RED BLOOD CELLS% 0.1 /100WBC (0.0-0.0); PLATELET COUNT 269 10^3/UL (140-415); RED BLOOD COUNT 2.88 10^6/ul (4.70-6.10); RED CELL DISTRIBUTION WIDTH 15.4 % (11.5-14.5)
[2019-05-19 06:14] LABS: WHITE BLOOD COUNT 18.6 10^3/ul (4.8-10.8)
[2019-05-19 06:37] LABS: ANION GAP 6 (5-13); BLOOD UREA NITROGEN 9 mg/dl (7-20); CALCIUM 6.9 mg/dl (8.4-10.2); CARBON DIOXIDE 24 mmol/L (21-31); CHLORIDE 104 mmol/L (97-110); CREATININE 0.71 mg/dl (0.61-1.24); Estimated GFR > 60 mL/min (>60); GLUCOSE 95 mg/dl (70-220); MAGNESIUM 1.7 mg/dl (1.7-2.5); POTASSIUM 3.6 mmol/L (3.5-5.1); SODIUM 134 mmol/L (135-144)
[2019-05-19] MEDS: TRIMETHOPRIM/SULFAMETHOX (DS) TAB PO ×2 (08:24→20:07)
[2019-05-19] MEDS: SOD CHLORIDE 0.9% 1,000 ML IV ×2 (09:00→14:17)
[2019-05-19] MEDS: MAGNESIUM SULFATE 2 GM/50 ML 50 ML IVPB (16:57)
[2019-05-19] MEDS: LIDOCAINE 1% (MPF) 5 ML VIAL SC (19:35)
[2019-05-19] MEDS: PREDNISOLONE ACET 1% 5 ML OPH LEFT EYE (20:07)
[2019-05-19] MEDS: GUAIFENESIN 20 MG/ML 5ML CUP PO (20:07)
[2019-05-20] MEDS: VANCOMYCIN HCL 1.5 GM in SOD CHLORIDE 0.9% 250 ML IVPB (02:13)
[2019-05-20 05:24] LABS: ADD MAN DIFF? NO
[2019-05-20 05:26] LABS: BASOPHILS % 0.2 % (0.0-2.0); EOSINOPHILS # 0.2 10^3/ul (0.0-0.5); EOSINOPHILS % 1.2 % (0.0-7.0); HEMATOCRIT 24.3 % (42.0-52.0); HEMOGLOBIN 8.3 g/dl (14.0-18.0); LYMPHOCYTES # 1.8 10^3/ul (0.8-2.9); LYMPHOCYTES % 13.3 % (15.0-51.0); MEAN CORPUSCULAR HEMOGLOBIN 27.9 pg (29.0-33.0); MEAN CORPUSCULAR HGB CONC 34.2 g/dl (32.0-37.0); MEAN CORPUSCULAR VOLUME 81.5 fl (82.0-101.0); MEAN PLATELET VOLUME 10.3 fl (7.4-10.4); MONOCYTE # 0.5 10^3/ul (0.3-0.9); MONOCYTES % 3.5 % (0.0-11.0); NEUTROPHIL # 10.5 10^3/ul (1.6-7.5); NEUTROPHILS % 77.3 % (39.0-77.0); PLATELET COUNT 260 10^3/UL (140-415); RED BLOOD COUNT 2.98 10^6/ul (4.70-6.10); RED CELL DISTRIBUTION WIDTH 15.4 % (11.5-14.5)
[2019-05-20 05:26] LABS: WHITE BLOOD COUNT 13.6 10^3/ul (4.8-10.8)
[2019-05-20 05:51] LABS: ANION GAP 4 (5-13); BLOOD UREA NITROGEN 7 mg/dl (7-20); CALCIUM 7.2 mg/dl (8.4-10.2); CARBON DIOXIDE 25 mmol/L (21-31); CHLORIDE 104 mmol/L (97-110); CREATININE 0.72 mg/dl (0.61-1.24); Estimated GFR > 60 mL/min (>60); GLUCOSE 89 mg/dl (70-220); MAGNESIUM 1.7 mg/dl (1.7-2.5); PHOSPHORUS 3.2 mg/dl (2.5-4.9); POTASSIUM 3.8 mmol/L (3.5-5.1); SODIUM 133 mmol/L (135-144)
[2019-05-20] MEDS: FAMOTIDINE 20 MG INJ IV (06:24)
[2019-05-20] MEDS: metroNIDAZOLE 500 MG/NS (PMX) 100 ML IVPB ×3 (06:25→21:53)
[2019-05-20] MEDS: morphine 2 MG INJ IV ×7 (06:25→23:00)
[2019-05-20] MEDS: EMTRICITABINE/TENOFOVIR TAB PO (08:18)
[2019-05-20] MEDS: LAMIVUDINE/ZIDOVUDINE TAB PO ×2 (08:18→21:53)
[2019-05-20] MEDS: TRIMETHOPRIM/SULFAMETHOX (DS) TAB PO ×2 (08:18→20:09)
[2019-05-20] MEDS: PREDNISOLONE ACET 1% 5 ML OPH LEFT EYE (08:19)
[2019-05-20] MEDS: DAKINS 0.0125%(1/40) 473 ML SOLUTION TP (09:00)
[2019-05-20] MEDS: VANCOMYCIN 1 GM 250 ML IVPB ×2 (10:39→17:27)
[2019-05-20] MEDS: FAMOTIDINE 20 MG TAB PO (20:09)
[2019-05-21] MEDS: morphine 2 MG INJ IV ×10 (01:11→23:27)
[2019-05-21] MEDS: VANCOMYCIN 1 GM 250 ML IVPB ×2 (01:12→12:05)
[2019-05-21] MEDS: metroNIDAZOLE 500 MG/NS (PMX) 100 ML IVPB ×3 (05:43→21:09)
[2019-05-21] MEDS: FAMOTIDINE 20 MG TAB PO ×2 (08:45→21:09)
[2019-05-21] MEDS: LAMIVUDINE/ZIDOVUDINE TAB PO ×2 (08:46→21:09)
[2019-05-21] MEDS: TRIMETHOPRIM/SULFAMETHOX (DS) TAB PO ×2 (08:46→21:09)
[2019-05-21] MEDS: DAKINS 0.0125%(1/40) 473 ML SOLUTION TP (08:47)
[2019-05-21 10:37] LABS: VANCOMYCIN,TROUGH 8.5 ug/ml (10.0-20.0)
[2019-05-21] MEDS: PREDNISOLONE ACET 1% 5 ML OPH LEFT EYE (12:06)
[2019-05-21] MEDS: EMTRICITABINE/TENOFOVIR TAB PO (12:49)
[2019-05-21] MEDS: [UNRECOGNIZED DRUG - OTHER] XX (13:00)
[2019-05-21] MEDS: LACTULOSE 30ML CUP PO (17:07)
[2019-05-21] MEDS: VANCOMYCIN HCL 1.25 GM in SOD CHLORIDE 0.9% 250 ML IVPB (17:07)
[2019-05-21] MEDS: POLYETHYLENE GLYCOL 17 GM PACKET PO (17:07)
[2019-05-21] MEDS: DOCUSATE SODIUM 100 MG CAP PO (20:56)
[2019-05-21] MEDS: ATROPINE 1% 5 ML OPH LEFT EYE (21:09)
[2019-05-22] MEDS ORDERED: PENDING SANTYL ORDER FOR WOUND CARE XX (02:30)
[2019-05-22] MEDS: VANCOMYCIN HCL 1.25 GM in SOD CHLORIDE 0.9% 250 ML IVPB ×4 (02:31→23:25)
[2019-05-22] MEDS: morphine 2 MG INJ IV ×5 (05:03→23:16)
[2019-05-22] MEDS: metroNIDAZOLE 500 MG/NS (PMX) 100 ML IVPB ×3 (05:03→22:09)
[2019-05-22 06:53] LABS: ADD MAN DIFF? NO
[2019-05-22 06:58] LABS: BASOPHILS % 0.2 % (0.0-2.0); EOSINOPHILS # 0.2 10^3/ul (0.0-0.5); EOSINOPHILS % 2.3 % (0.0-7.0); HEMATOCRIT 29.2 % (42.0-52.0); HEMOGLOBIN 9.4 g/dl (14.0-18.0); LYMPHOCYTES # 1.5 10^3/ul (0.8-2.9); MEAN CORPUSCULAR HEMOGLOBIN 26.4 pg (29.0-33.0); MEAN CORPUSCULAR HGB CONC 32.2 g/dl (32.0-37.0); MEAN PLATELET VOLUME 10.2 fl (7.4-10.4); MONOCYTE # 0.3 10^3/ul (0.3-0.9); MONOCYTES % 2.6 % (0.0-11.0); NEUTROPHIL # 7.4 10^3/ul (1.6-7.5); NEUTROPHILS % 76.8 % (39.0-77.0); PLATELET COUNT 348 10^3/UL (140-415); RED BLOOD COUNT 3.56 10^6/ul (4.70-6.10); RED CELL DISTRIBUTION WIDTH 15.9 % (11.5-14.5)
[2019-05-22 06:58] LABS: WHITE BLOOD COUNT 9.6 10^3/ul (4.8-10.8)
[2019-05-22] MEDS ORDERED: GLYCOPYRROLATE 0.4 MG INJ (07:00)
[2019-05-22 07:55] LABS: ANION GAP 8 (5-13); BLOOD UREA NITROGEN 9 mg/dl (7-20); CALCIUM 7.5 mg/dl (8.4-10.2); CARBON DIOXIDE 22 mmol/L (21-31); CHLORIDE 105 mmol/L (97-110); CREATININE 0.69 mg/dl (0.61-1.24); Estimated GFR > 60 mL/min (>60); GLUCOSE 92 mg/dl (70-220); MAGNESIUM 1.7 mg/dl (1.7-2.5); PHOSPHORUS 3.9 mg/dl (2.5-4.9); POTASSIUM 4.1 mmol/L (3.5-5.1); SODIUM 135 mmol/L (135-144)
[2019-05-22] MEDS: DAKINS 0.0125%(1/40) 473 ML SOLUTION TP (09:00)
[2019-05-22] MEDS: POLYETHYLENE GLYCOL 17 GM PACKET PO (09:00)
[2019-05-22] MEDS: PREDNISOLONE ACET 1% 5 ML OPH LEFT EYE (09:46)
[2019-05-22] MEDS: ATROPINE 1% 5 ML OPH LEFT EYE ×2 (09:46→21:09)
[2019-05-22] MEDS: FAMOTIDINE 20 MG TAB PO ×2 (09:48→21:10)
[2019-05-22] MEDS: EMTRICITABINE/TENOFOVIR TAB PO (09:48)
[2019-05-22] MEDS: DOCUSATE SODIUM 100 MG CAP PO ×2 (09:48→21:10)
[2019-05-22] MEDS: LAMIVUDINE/ZIDOVUDINE TAB PO ×2 (09:48→21:10)
[2019-05-22] MEDS: TRIMETHOPRIM/SULFAMETHOX (DS) TAB PO ×2 (09:48→21:10)
[2019-05-22] MEDS ORDERED: HYDROGEN PEROXIDE 118 ML (16:54)
[2019-05-22] MEDS: ALTEPLASE (CATHFLO) 2 MG INJ CATHETER (17:26)
[2019-05-22] MEDS ORDERED: MEPERIDINE 25 MG INJ IV (17:30)
[2019-05-22] MEDS ORDERED: HYDROmorphONE 1 MG/5 ML IV SYRINGE IV ×3 (17:30)
[2019-05-22] MEDS ORDERED: DIPHENHYDRAMINE 50 MG INJ IV (17:30)
[2019-05-22] MEDS ORDERED: ONDANSETRON 4 MG INJ IV (17:30)
[2019-05-22] MEDS ORDERED: METOCLOPRAMIDE 10 MG INJ IV (17:30)
[2019-05-22] MEDS ORDERED: ALBUTEROL 0.083% (NEB) 2.5 MG/3 ML AMP HHN (17:30)
[2019-05-22] MEDS ORDERED: FENTAnyl 50 MCG/ML VIAL IV ×3 (17:30)
[2019-05-22] MEDS: POLYMYXIN/BACITRACIN 1L IRRIG (19:02)
[2019-05-22] MEDS ORDERED: SUGAMMADEX SODIUM 200 MG/2 ML VIAL IV (19:14)
[2019-05-22] MEDS ORDERED: PROPOFOL 20 ML (19:14)
[2019-05-22] MEDS ORDERED: ROCURONIUM 50 MG INJ (19:14)
[2019-05-22] MEDS ORDERED: SUCCINYLCHOLINE CHLORIDE 100 MG/5 ML SYG IV (19:14)
[2019-05-22] MEDS ORDERED: LIDOCAINE 100 MG SYRINGE (19:14)
[2019-05-23] MEDS: morphine 2 MG INJ IV ×4 (05:31→23:16)
[2019-05-23] MEDS: metroNIDAZOLE 500 MG/NS (PMX) 100 ML IVPB ×3 (05:31→23:03)
[2019-05-23] MEDS: VANCOMYCIN HCL 1.25 GM in SOD CHLORIDE 0.9% 250 ML IVPB ×3 (06:42→23:03)
[2019-05-23] MEDS: POLYETHYLENE GLYCOL 17 GM PACKET PO (08:49)
[2019-05-23] MEDS: ZINC SULFATE 220 MG CAP PO (08:49)
[2019-05-23] MEDS: DOCUSATE SODIUM 100 MG CAP PO ×2 (08:49→21:00)
[2019-05-23] MEDS: ACETAMINOPHEN 650MG/20.3ML CUP PO ×2 (08:49→18:38)
[2019-05-23] MEDS: PREDNISOLONE ACET 1% 5 ML OPH LEFT EYE (08:49)
[2019-05-23] MEDS: ATROPINE 1% 5 ML OPH LEFT EYE ×2 (08:49→23:03)
[2019-05-23] MEDS: EMTRICITABINE/TENOFOVIR TAB PO (08:49)
[2019-05-23] MEDS: LAMIVUDINE/ZIDOVUDINE TAB PO ×2 (08:49→23:02)
[2019-05-23] MEDS: MULTIVITAMINS/MINERALS TAB PO (08:49)
[2019-05-23] MEDS: TRIMETHOPRIM/SULFAMETHOX (DS) TAB PO ×2 (08:50→23:02)
[2019-05-23] MEDS: FAMOTIDINE 20 MG TAB PO ×2 (08:50→23:02)
[2019-05-23] MEDS: DAKINS 0.0125%(1/40) 473 ML SOLUTION TP (08:50)
[2019-05-23] MEDS: ASCORBIC ACID 500 MG TAB PO ×2 (08:52→23:02)
[2019-05-23] MEDS: ONDANSETRON 4 MG INJ IV (11:06)
[2019-05-23 16:08] LABS: VANCOMYCIN,TROUGH 14.4 ug/ml (10.0-20.0)
[2019-05-24] MEDS: VANCOMYCIN HCL 1.25 GM in SOD CHLORIDE 0.9% 250 ML IVPB ×3 (06:21→22:10)
[2019-05-24] MEDS: metroNIDAZOLE 500 MG/NS (PMX) 100 ML IVPB ×3 (06:21→22:10)
[2019-05-24 06:38] LABS: HEMATOCRIT 26.7 % (42.0-52.0); HEMOGLOBIN 8.7 g/dl (14.0-18.0); MEAN CORPUSCULAR HGB CONC 32.6 g/dl (32.0-37.0); MEAN CORPUSCULAR VOLUME 82.9 fl (82.0-101.0); PLATELET COUNT 421 10^3/UL (140-415); POSITIVE DIFF @See below; RED BLOOD COUNT 3.22 10^6/ul (4.70-6.10); RED CELL DISTRIBUTION WIDTH 16.1 % (11.5-14.5)
[2019-05-24 06:38] LABS: WHITE BLOOD COUNT 8.8 10^3/ul (4.8-10.8)
[2019-05-24 06:45] LABS: ADD MAN DIFF? YES
[2019-05-24 07:02] LABS: ANION GAP 8 (5-13); BLOOD UREA NITROGEN 11 mg/dl (7-20); CALCIUM 7.3 mg/dl (8.4-10.2); CARBON DIOXIDE 21 mmol/L (21-31); CHLORIDE 98 mmol/L (97-110); CREATININE 0.94 mg/dl (0.61-1.24); Estimated GFR > 60 mL/min (>60); GLUCOSE 88 mg/dl (70-220); MAGNESIUM 1.6 mg/dl (1.7-2.5); PHOSPHORUS 2.7 mg/dl (2.5-4.9); POTASSIUM 4.1 mmol/L (3.5-5.1); SODIUM 127 mmol/L (135-144)
[2019-05-24 07:30] LABS: ANISOCYTOSIS 2+ (0-0); BAND NEUTROPHILS #M 1.5 10^3/ul (0.0-0.6); BAND NEUTROPHILS % (M) 18 % (0-4); BURR CELLS 1+ (0-0); EOSINOPHILS % (M) 2 % (0-7); GIANT THROMBO% (M) 1 % (0-0); HYPOCHROMASIA 1+ (0-0); LYMPHOCYTES #M 1.6 10^3/ul (0.8-2.9); LYMPHOCYTES % (M) 19 % (15-51); METAMYELOCYTES %M 1 % (0-0); MICROCYTOSIS 1+ (0-0); MONOCYTE #M 0.3 10^3/ul (0.3-0.9); MONOCYTES % (M) 4 % (0-11); PLATELET ESTIMATE NORMAL; POLYCHROMASIA 1+ (0-0); REACTIVE LYMPHOCYTES% (M) 1 % (0-0); SEGMENTED NEUTROPHILS (M) % 55 % (39-77); SMUDGE%M 18 % (0-0)
[2019-05-24] MEDS: SOD CHLORIDE 0.9% 1,000 ML IV (08:40)
[2019-05-24] MEDS: ACETAMINOPHEN 650MG/20.3ML CUP PO ×2 (08:41→16:01)
[2019-05-24] MEDS: ZINC SULFATE 220 MG CAP PO (08:41)
[2019-05-24] MEDS: PREDNISOLONE ACET 1% 5 ML OPH LEFT EYE (08:41)
[2019-05-24] MEDS: LAMIVUDINE/ZIDOVUDINE TAB PO ×2 (08:41→22:09)
[2019-05-24] MEDS: DOCUSATE SODIUM 100 MG CAP PO ×2 (08:42→21:00)
[2019-05-24] MEDS: ATROPINE 1% 5 ML OPH LEFT EYE ×2 (08:42→22:10)
[2019-05-24] MEDS: TRIMETHOPRIM/SULFAMETHOX (DS) TAB PO (08:42)
[2019-05-24] MEDS: MULTIVITAMINS/MINERALS TAB PO (08:42)
[2019-05-24] MEDS: EMTRICITABINE/TENOFOVIR TAB PO (08:42)
[2019-05-24] MEDS: ASCORBIC ACID 500 MG TAB PO ×2 (08:42→22:08)
[2019-05-24] MEDS: POLYETHYLENE GLYCOL 17 GM PACKET PO (08:43)
[2019-05-24] MEDS: FAMOTIDINE 20 MG TAB PO ×2 (08:43→22:09)
[2019-05-24] MEDS: DAKINS 0.0125%(1/40) 473 ML SOLUTION TP ×2 (08:44→11:28)
[2019-05-24] MEDS: morphine 2 MG INJ IV (11:27)
[2019-05-24] MEDS: MEROPENEM 1 GM/50ML(PMX) 50 ML IVPB ×2 (12:45→20:53)
[2019-05-24 16:47] LABS: SODIUM,URINE RANDOM 181 mmol/L (30-90)
[2019-05-24 17:36] LABS: OSMOLALITY,URINE 639 mOsm/kg (250-1200)
[2019-05-24] MEDS: ONDANSETRON 4 MG INJ IV (20:37)
[2019-05-24] MEDS: SOD CHLORIDE 0.9% 500 ML IV (20:54)
[2019-05-24] MEDS: IBUPROFEN 400 MG TAB PO (22:10)
[2019-05-25] MEDS: metroNIDAZOLE 500 MG/NS (PMX) 100 ML IVPB (05:22)
[2019-05-25] MEDS: VANCOMYCIN HCL 1.25 GM in SOD CHLORIDE 0.9% 250 ML IVPB ×3 (05:23→21:02)
[2019-05-25 06:06] LABS: IRON 37 ug/dl (35-150)
[2019-05-25 06:08] LABS: ANION GAP 7 (5-13); BLOOD UREA NITROGEN 12 mg/dl (7-20); CALCIUM 7.3 mg/dl (8.4-10.2); CARBON DIOXIDE 20 mmol/L (21-31); CHLORIDE 106 mmol/L (97-110); CREATININE 0.76 mg/dl (0.61-1.24); Estimated GFR > 60 mL/min (>60); GLUCOSE 94 mg/dl (70-220); POTASSIUM 4.1 mmol/L (3.5-5.1); SODIUM 133 mmol/L (135-144)
[2019-05-25 06:15] LABS: % IRON SATURATION 18 % SAT (22-52); TOTAL IRON BINDING CAPACITY 206 ug/dl (241-421)
[2019-05-25] MEDS: ACETAMINOPHEN 1000MG/100ML IV 100 ML IVPB (06:47)
[2019-05-25] MEDS: LAMIVUDINE/ZIDOVUDINE TAB PO ×2 (08:44→20:58)
[2019-05-25] MEDS: ZINC SULFATE 220 MG CAP PO (08:44)
[2019-05-25] MEDS: MEROPENEM 1 GM/50ML(PMX) 50 ML IVPB (08:44)
[2019-05-25] MEDS: EMTRICITABINE/TENOFOVIR TAB PO (08:44)
[2019-05-25] MEDS: PREDNISOLONE ACET 1% 5 ML OPH LEFT EYE (08:45)
[2019-05-25] MEDS: ATROPINE 1% 5 ML OPH LEFT EYE ×2 (08:45→20:58)
[2019-05-25] MEDS: DOCUSATE SODIUM 100 MG CAP PO ×2 (08:45→20:58)
[2019-05-25] MEDS: DAKINS 0.0125%(1/40) 473 ML SOLUTION TP (08:45)
[2019-05-25] MEDS: ASCORBIC ACID 500 MG TAB PO ×2 (08:45→20:58)
[2019-05-25] MEDS: MULTIVITAMINS/MINERALS TAB PO (08:45)
[2019-05-25] MEDS: FAMOTIDINE 20 MG TAB PO ×2 (08:45→20:58)
[2019-05-25] MEDS: POLYETHYLENE GLYCOL 17 GM PACKET PO (08:46)
[2019-05-25] MEDS: ACETAMINOPHEN 650MG/20.3ML CUP PO (12:47)
[2019-05-25] MEDS: morphine 2 MG INJ IV ×3 (13:49→23:42)
[2019-05-25] MEDS: IBUPROFEN 400 MG TAB PO ×2 (16:10→23:44)
[2019-05-25] MEDS: CIPROFLOXACIN 500 MG TAB PO (17:49)
[2019-05-25] MEDS: ONDANSETRON 4 MG INJ IV (17:52)
[2019-05-26] MEDS: ACETAMINOPHEN 1000MG/100ML IV 100 ML IVPB (01:58)
[2019-05-26] MEDS: SOD CHLORIDE 0.9% 1,000 ML IV (02:00)
[2019-05-26] MEDS: VANCOMYCIN HCL 1.25 GM in SOD CHLORIDE 0.9% 250 ML IVPB ×3 (05:10→22:32)
[2019-05-26] MEDS: CIPROFLOXACIN 500 MG TAB PO ×2 (05:11→18:09)
[2019-05-26 06:08] LABS: WHITE BLOOD COUNT 3.7 10^3/ul (4.8-10.8)
[2019-05-26 06:08] LABS: ABNORMAL IP MESSAGE 1; HEMATOCRIT 23.6 % (42.0-52.0); HEMOGLOBIN 7.9 g/dl (14.0-18.0); MEAN CORPUSCULAR HGB CONC 33.5 g/dl (32.0-37.0); MEAN CORPUSCULAR VOLUME 83.7 fl (82.0-101.0); MEAN PLATELET VOLUME 9.7 fl (7.4-10.4); PLATELET COUNT 433 10^3/UL (140-415); POSITIVE DIFF @See below; RED BLOOD COUNT 2.82 10^6/ul (4.70-6.10); RED CELL DISTRIBUTION WIDTH 16.9 % (11.5-14.5)
[2019-05-26 06:09] LABS: ADD UMIC NO; UR AMORPHOUS CRYSTAL FEW /HPF (NONE SEEN); UR ASCORBIC ACID NEGATIVE (NEGATIVE); UR BACTERIA FEW /HPF (NONE SEEN); UR BILIRUBIN (Dip) NEGATIVE (NEGATIVE); UR BLOOD (Dip) NEGATIVE (NEGATIVE); UR CLARITY SLIGHTLY CLOUDY (CLEAR); UR COLOR YELLOW (YELLOW); UR GLUCOSE (Dip) NEGATIVE (NEGATIVE); UR KETONES (Dip) NEGATIVE (NEGATIVE); UR LEUKOCYTE ESTERASE (Dip) NEGATIVE Leu/ul (NEGATIVE); UR NITRITE (Dip) NEGATIVE (NEGATIVE); UR RBC 1 /HPF (0-5); UR SPECIFIC GRAVITY (Dip) 1.008 (1.003-1.030); UR TOTAL PROTEIN (Dip) NEGATIVE (NEGATIVE); UR UROBILINOGEN (Dip) NEGATIVE (NEGATIVE); UR WBC 2 /HPF (0-5)
[2019-05-26 06:12] LABS: ADD MAN DIFF? YES
[2019-05-26 06:57] LABS: ANION GAP 6 (5-13); BLOOD UREA NITROGEN 12 mg/dl (7-20); CALCIUM 7.1 mg/dl (8.4-10.2); CARBON DIOXIDE 21 mmol/L (21-31); CHLORIDE 106 mmol/L (97-110); CREATININE 0.75 mg/dl (0.61-1.24); Estimated GFR > 60 mL/min (>60); GLUCOSE 98 mg/dl (70-220); MAGNESIUM 1.8 mg/dl (1.7-2.5); PHOSPHORUS 3.1 mg/dl (2.5-4.9); POTASSIUM 3.7 mmol/L (3.5-5.1); SODIUM 133 mmol/L (135-144)
[2019-05-26 08:29] LABS: ANISOCYTOSIS 1+ (0-0); BAND NEUTROPHILS #M 0.7 10^3/ul (0.0-0.6); BAND NEUTROPHILS % (M) 20 % (0-4); BASOPHILS % (M) 1 % (0-2); EOSINOPHILS % (M) 2 % (0-7); GIANT THROMBO% (M) 8 % (0-0); LYMPHOCYTES #M 0.1 10^3/ul (0.8-2.9); LYMPHOCYTES % (M) 4 % (15-51); MICROCYTOSIS 1+ (0-0); PLATELET ESTIMATE INCREASED; POLYCHROMASIA 1+ (0-0); SEG NEUT #M 2.7 10^3/ul (1.6-7.5); SEGMENTED NEUTROPHILS (M) % 73 % (39-77); SMUDGE%M 21 % (0-0)
[2019-05-26] MEDS: LAMIVUDINE/ZIDOVUDINE TAB PO ×2 (08:39→21:39)
[2019-05-26] MEDS: IBUPROFEN 400 MG TAB PO (08:39)
[2019-05-26] MEDS: ASCORBIC ACID 500 MG TAB PO ×2 (08:39→21:39)
[2019-05-26] MEDS: EMTRICITABINE/TENOFOVIR TAB PO (08:39)
[2019-05-26] MEDS: FAMOTIDINE 20 MG TAB PO ×2 (08:39→21:39)
[2019-05-26] MEDS: ZINC SULFATE 220 MG CAP PO (08:39)
[2019-05-26] MEDS: PREDNISOLONE ACET 1% 5 ML OPH LEFT EYE (08:40)
[2019-05-26] MEDS: ATROPINE 1% 5 ML OPH LEFT EYE ×2 (08:40→21:39)
[2019-05-26] MEDS: DOCUSATE SODIUM 100 MG CAP PO ×2 (08:40→21:00)
[2019-05-26] MEDS: POLYETHYLENE GLYCOL 17 GM PACKET PO (08:40)
[2019-05-26] MEDS: MULTIVITAMINS/MINERALS TAB PO (08:42)
[2019-05-26] MEDS: DAKINS 0.0125%(1/40) 473 ML SOLUTION TP (09:00)
[2019-05-26] MEDS: morphine 2 MG INJ IV ×3 (09:30→13:04)
[2019-05-26] MEDS: TRIMETHOPRIM/SULFAMETHOX (DS) TAB PO (12:42)
[2019-05-26 13:51] LABS: VANCOMYCIN,TROUGH 13.6 ug/ml (10.0-20.0)
[2019-05-26] MEDS ORDERED: ALTEPLASE (CATHFLO) 2 MG INJ CATHETER (14:30)
[2019-05-26] MEDS: HYDROCODONE/APAP (5/325) TAB PO ×2 (14:52→21:39)
[2019-05-26] MEDS: ALTEPLASE (CATHFLO) 2 MG INJ CATHETER (18:04)
[2019-05-26] MEDS: ACETAMINOPHEN 650MG/20.3ML CUP PO (18:14)
[2019-05-27] MEDS: DAKINS 0.0125%(1/40) 473 ML SOLUTION TP ×2 (00:57→08:36)
[2019-05-27] MEDS: ACETAMINOPHEN 1000MG/100ML IV 100 ML IVPB (01:27)
[2019-05-27] MEDS: VANCOMYCIN HCL 1.25 GM in SOD CHLORIDE 0.9% 250 ML IVPB ×3 (06:25→21:36)
[2019-05-27] MEDS: CIPROFLOXACIN 500 MG TAB PO (06:26)
[2019-05-27] MEDS: ACETAMINOPHEN 650MG/20.3ML CUP PO ×2 (06:28→14:24)
[2019-05-27] MEDS: POLYETHYLENE GLYCOL 17 GM PACKET PO (08:34)
[2019-05-27] MEDS: ZINC SULFATE 220 MG CAP PO (08:35)
[2019-05-27] MEDS: ATROPINE 1% 5 ML OPH LEFT EYE ×2 (08:35→21:35)
[2019-05-27] MEDS: EMTRICITABINE/TENOFOVIR TAB PO (08:35)
[2019-05-27] MEDS: TRIMETHOPRIM/SULFAMETHOX (DS) TAB PO (08:35)
[2019-05-27] MEDS: FAMOTIDINE 20 MG TAB PO ×2 (08:35→21:35)
[2019-05-27] MEDS: PREDNISOLONE ACET 1% 5 ML OPH LEFT EYE (08:35)
[2019-05-27] MEDS: MULTIVITAMINS/MINERALS TAB PO (08:35)
[2019-05-27] MEDS: ASCORBIC ACID 500 MG TAB PO ×2 (08:35→21:35)
[2019-05-27] MEDS: DOCUSATE SODIUM 100 MG CAP PO ×2 (08:35→21:00)
[2019-05-27] MEDS: LAMIVUDINE/ZIDOVUDINE TAB PO ×2 (08:35→21:35)
[2019-05-27] MEDS: HYDROCODONE/APAP (5/325) TAB PO ×4 (09:12→22:09)
[2019-05-27] MEDS: morphine 2 MG INJ IV ×2 (11:58→20:10)
[2019-05-27] MEDS: FLUCONAZOLE 100 MG TAB PO (12:18)
[2019-05-27] MEDS ORDERED: MEROPENEM 1 GM/50ML(PMX) 50 ML IVPB (15:00)
[2019-05-27] MEDS: MEROPENEM 1 GM/50ML(PMX) 50 ML IVPB (17:09)
[2019-05-27] MEDS: AZITHROMYCIN 600 MG TAB PO (17:58)
[2019-05-28] MEDS: MEROPENEM 1 GM/50ML(PMX) 50 ML IVPB ×3 (01:43→17:14)
[2019-05-28] MEDS: ACETAMINOPHEN 650MG/20.3ML CUP PO (01:51)
[2019-05-28] MEDS: HYDROCODONE/APAP (5/325) TAB PO ×4 (02:40→20:57)
[2019-05-28] MEDS: VANCOMYCIN HCL 1.25 GM in SOD CHLORIDE 0.9% 250 ML IVPB ×3 (05:48→21:00)
[2019-05-28 06:20] LABS: WHITE BLOOD COUNT 3.9 10^3/ul (4.8-10.8)
[2019-05-28 06:20] LABS: HEMATOCRIT 24.7 % (42.0-52.0); HEMOGLOBIN 8.1 g/dl (14.0-18.0); MEAN CORPUSCULAR HEMOGLOBIN 27.7 pg (29.0-33.0); MEAN CORPUSCULAR HGB CONC 32.8 g/dl (32.0-37.0); MEAN CORPUSCULAR VOLUME 84.6 fl (82.0-101.0); PLATELET COUNT 417 10^3/UL (140-415); POSITIVE DIFF @See below; RED BLOOD COUNT 2.92 10^6/ul (4.70-6.10); RED CELL DISTRIBUTION WIDTH 17.2 % (11.5-14.5)
[2019-05-28 06:46] LABS: ADD MAN DIFF? YES; ALANINE AMINOTRANSFERASE 26 IU/L (13-69); ALBUMIN 2.4 g/dl (3.3-4.9); ALBUMIN/GLOBULIN RATIO 0.58; ALKALINE PHOSPHATASE 73 IU/L (42-121); ANION GAP 6 (5-13); ASPARTATE AMINO TRANSFERASE 72 IU/L (15-46); BILIRUBIN,INDIRECT 0.3 mg/dl (0-1.1); BILIRUBIN,TOTAL 0.3 mg/dl (0.2-1.3); BLOOD UREA NITROGEN 10 mg/dl (7-20); CALCIUM 7.6 mg/dl (8.4-10.2); CARBON DIOXIDE 24 mmol/L (21-31); CHLORIDE 101 mmol/L (97-110); CREATININE 0.86 mg/dl (0.61-1.24); Estimated GFR > 60 mL/min (>60); GLUCOSE 90 mg/dl (70-220); POTASSIUM 3.8 mmol/L (3.5-5.1); SODIUM 131 mmol/L (135-144); TOTAL PROTEIN 6.5 g/dl (6.1-8.1)
[2019-05-28 08:05] LABS: ADD UMIC NO; UR ASCORBIC ACID NEGATIVE (NEGATIVE); UR BILIRUBIN (Dip) NEGATIVE (NEGATIVE); UR BLOOD (Dip) NEGATIVE (NEGATIVE); UR CLARITY CLEAR (CLEAR); UR COLOR STRAW (YELLOW); UR GLUCOSE (Dip) NEGATIVE (NEGATIVE); UR KETONES (Dip) NEGATIVE (NEGATIVE); UR LEUKOCYTE ESTERASE (Dip) NEGATIVE Leu/ul (NEGATIVE); UR NITRITE (Dip) NEGATIVE (NEGATIVE); UR SPECIFIC GRAVITY (Dip) 1.005 (1.003-1.030); UR TOTAL PROTEIN (Dip) NEGATIVE (NEGATIVE); UR UROBILINOGEN (Dip) NEGATIVE (NEGATIVE)
[2019-05-28] MEDS: ASCORBIC ACID 500 MG TAB PO ×2 (08:34→20:56)
[2019-05-28] MEDS: MULTIVITAMINS/MINERALS TAB PO (08:34)
[2019-05-28] MEDS: FAMOTIDINE 20 MG TAB PO ×2 (08:35→20:56)
[2019-05-28] MEDS: LAMIVUDINE/ZIDOVUDINE TAB PO ×2 (08:35→20:56)
[2019-05-28] MEDS: DOCUSATE SODIUM 100 MG CAP PO ×2 (08:35→20:57)
[2019-05-28] MEDS: PREDNISOLONE ACET 1% 5 ML OPH LEFT EYE (08:36)
[2019-05-28] MEDS: FLUCONAZOLE 100 MG TAB PO (08:36)
[2019-05-28] MEDS: ATROPINE 1% 5 ML OPH LEFT EYE ×2 (08:36→20:57)
[2019-05-28] MEDS: ZINC SULFATE 220 MG CAP PO (08:36)
[2019-05-28] MEDS: EMTRICITABINE/TENOFOVIR TAB PO (08:36)
[2019-05-28] MEDS: TRIMETHOPRIM/SULFAMETHOX (DS) TAB PO (08:37)
[2019-05-28] MEDS: DAKINS 0.0125%(1/40) 473 ML SOLUTION TP (08:43)
[2019-05-28] MEDS: POLYETHYLENE GLYCOL 17 GM PACKET PO (08:44)
[2019-05-28 10:08] LABS: ANISOCYTOSIS 1+ (0-0); BAND NEUTROPHILS #M 0.6 10^3/ul (0.0-0.6); BAND NEUTROPHILS % (M) 17 % (0-4); EOSINOPHILS % (M) 4 % (0-7); GIANT THROMBO% (M) 2 % (0-0); LYMPHOCYTES #M 0.5 10^3/ul (0.8-2.9); LYMPHOCYTES % (M) 13 % (15-51); METAMYELOCYTES %M 1 % (0-0); MONOCYTES % (M) 1 % (0-11); PLATELET ESTIMATE NORMAL; REACTIVE LYMPHOCYTES% (M) 1 % (0-0); SEG NEUT #M 2.5 10^3/ul (1.6-7.5); SEGMENTED NEUTROPHILS (M) % 63 % (39-77); SMUDGE%M 44 % (0-0)
[2019-05-28] MEDS: morphine 2 MG INJ IV ×3 (11:58→23:53)
[2019-05-29] MEDS: MEROPENEM 1 GM/50ML(PMX) 50 ML IVPB ×3 (02:14→17:07)
[2019-05-29] MEDS: HYDROCODONE/APAP (5/325) TAB PO ×6 (02:29→19:34)
[2019-05-29] MEDS: morphine 2 MG INJ IV ×4 (04:14→20:37)
[2019-05-29] MEDS: VANCOMYCIN HCL 1.25 GM in SOD CHLORIDE 0.9% 250 ML IVPB ×3 (05:47→22:41)
[2019-05-29] MEDS: LAMIVUDINE/ZIDOVUDINE TAB PO ×2 (08:49→20:39)
[2019-05-29] MEDS: ZINC SULFATE 220 MG CAP PO (08:49)
[2019-05-29] MEDS: TRIMETHOPRIM/SULFAMETHOX (DS) TAB PO (08:49)
[2019-05-29] MEDS: PREDNISOLONE ACET 1% 5 ML OPH LEFT EYE (08:49)
[2019-05-29] MEDS: FLUCONAZOLE 100 MG TAB PO (08:49)
[2019-05-29] MEDS: ATROPINE 1% 5 ML OPH LEFT EYE ×2 (08:49→20:39)
[2019-05-29] MEDS: ASCORBIC ACID 500 MG TAB PO ×2 (08:49→20:39)
[2019-05-29] MEDS: MULTIVITAMINS/MINERALS TAB PO (08:49)
[2019-05-29] MEDS: POLYETHYLENE GLYCOL 17 GM PACKET PO (08:50)
[2019-05-29] MEDS: DOCUSATE SODIUM 100 MG CAP PO ×2 (08:50→21:00)
[2019-05-29] MEDS: FAMOTIDINE 20 MG TAB PO ×2 (08:50→20:39)
[2019-05-29] MEDS: EMTRICITABINE/TENOFOVIR TAB PO (08:50)
[2019-05-29] MEDS: DAKINS 0.0125%(1/40) 473 ML SOLUTION TP (08:53)
[2019-05-29 21:18] LABS: VANCOMYCIN,TROUGH 13.5 ug/ml (10.0-20.0)
[2019-05-29] MEDS: morphine 4 MG/ML VIAL IV (22:41)
[2019-05-30] MEDS: MEROPENEM 1 GM/50ML(PMX) 50 ML IVPB ×3 (00:19→16:37)
[2019-05-30] MEDS: HYDROCODONE/APAP (5/325) TAB PO ×3 (00:19→22:32)
[2019-05-30] MEDS: VANCOMYCIN HCL 1.25 GM in SOD CHLORIDE 0.9% 250 ML IVPB ×3 (06:25→22:34)
[2019-05-30] MEDS: morphine 2 MG INJ IV ×6 (06:31→21:12)
[2019-05-30 06:49] LABS: CREATININE 0.54 mg/dl (0.61-1.24)
[2019-05-30 06:49] LABS: BLOOD UREA NITROGEN 11 mg/dl (7-20)
[2019-05-30] MEDS: POLYETHYLENE GLYCOL 17 GM PACKET PO (09:00)
[2019-05-30] MEDS: DOCUSATE SODIUM 100 MG CAP PO ×2 (09:00→21:00)
[2019-05-30] MEDS: PREDNISOLONE ACET 1% 5 ML OPH LEFT EYE (09:33)
[2019-05-30] MEDS: ATROPINE 1% 5 ML OPH LEFT EYE ×2 (09:33→21:11)
[2019-05-30] MEDS: MULTIVITAMINS/MINERALS TAB PO (09:34)
[2019-05-30] MEDS: ASCORBIC ACID 500 MG TAB PO ×2 (09:34→21:10)
[2019-05-30] MEDS: FLUCONAZOLE 100 MG TAB PO (09:34)
[2019-05-30] MEDS: EMTRICITABINE/TENOFOVIR TAB PO (09:34)
[2019-05-30] MEDS: LAMIVUDINE/ZIDOVUDINE TAB PO ×2 (09:34→21:10)
[2019-05-30] MEDS: FAMOTIDINE 20 MG TAB PO ×2 (09:34→21:11)
[2019-05-30] MEDS: TRIMETHOPRIM/SULFAMETHOX (DS) TAB PO (09:34)
[2019-05-30] MEDS: ZINC SULFATE 220 MG CAP PO (09:34)
[2019-05-30] MEDS: DAKINS 0.0125%(1/40) 473 ML SOLUTION TP (09:35)
[2019-05-31] MEDS: morphine 2 MG INJ IV ×7 (01:00→21:28)
[2019-05-31] MEDS: MEROPENEM 1 GM/50ML(PMX) 50 ML IVPB ×3 (02:09→16:56)
[2019-05-31] MEDS: VANCOMYCIN HCL 1.25 GM in SOD CHLORIDE 0.9% 250 ML IVPB ×3 (05:37→21:26)
[2019-05-31] MEDS: POLYETHYLENE GLYCOL 17 GM PACKET PO (09:00)
[2019-05-31] MEDS: DOCUSATE SODIUM 100 MG CAP PO ×2 (09:00→21:00)
[2019-05-31] MEDS: PREDNISOLONE ACET 1% 5 ML OPH LEFT EYE (09:39)
[2019-05-31] MEDS: ATROPINE 1% 5 ML OPH LEFT EYE ×2 (09:39→21:26)
[2019-05-31] MEDS: EMTRICITABINE/TENOFOVIR TAB PO (09:40)
[2019-05-31] MEDS: FAMOTIDINE 20 MG TAB PO ×2 (09:40→21:26)
[2019-05-31] MEDS: ASCORBIC ACID 500 MG TAB PO ×2 (09:40→21:26)
[2019-05-31] MEDS: TRIMETHOPRIM/SULFAMETHOX (DS) TAB PO (09:40)
[2019-05-31] MEDS: LAMIVUDINE/ZIDOVUDINE TAB PO ×2 (09:40→21:26)
[2019-05-31] MEDS: FLUCONAZOLE 100 MG TAB PO (09:40)
[2019-05-31] MEDS: ZINC SULFATE 220 MG CAP PO (09:40)
[2019-05-31] MEDS: MULTIVITAMINS/MINERALS TAB PO (09:40)
[2019-05-31] MEDS: DAKINS 0.0125%(1/40) 473 ML SOLUTION TP (09:42)
[2019-05-31] MEDS: HYDROCODONE/APAP (5/325) TAB PO ×2 (18:03→22:52)
[2019-06-01] MEDS: morphine 2 MG INJ IV ×6 (00:58→23:54)
[2019-06-01] MEDS: MEROPENEM 1 GM/50ML(PMX) 50 ML IVPB ×3 (00:58→16:57)
[2019-06-01] MEDS: VANCOMYCIN HCL 1.25 GM in SOD CHLORIDE 0.9% 250 ML IVPB ×3 (05:32→22:49)
[2019-06-01 05:52] LABS: BLOOD UREA NITROGEN 14 mg/dl (7-20)
[2019-06-01 05:52] LABS: CREATININE 0.52 mg/dl (0.61-1.24)
[2019-06-01] MEDS: FAMOTIDINE 20 MG TAB PO ×2 (08:36→20:22)
[2019-06-01] MEDS: POLYETHYLENE GLYCOL 17 GM PACKET PO (08:36)
[2019-06-01] MEDS: PREDNISOLONE ACET 1% 5 ML OPH LEFT EYE (08:36)
[2019-06-01] MEDS: LAMIVUDINE/ZIDOVUDINE TAB PO ×2 (08:36→20:21)
[2019-06-01] MEDS: MULTIVITAMINS/MINERALS TAB PO (08:36)
[2019-06-01] MEDS: EMTRICITABINE/TENOFOVIR TAB PO (08:36)
[2019-06-01] MEDS: FLUCONAZOLE 100 MG TAB PO (08:36)
[2019-06-01] MEDS: ZINC SULFATE 220 MG CAP PO (08:36)
[2019-06-01] MEDS: ASCORBIC ACID 500 MG TAB PO ×2 (08:36→20:22)
[2019-06-01] MEDS: ATROPINE 1% 5 ML OPH LEFT EYE ×2 (08:36→20:22)
[2019-06-01] MEDS: TRIMETHOPRIM/SULFAMETHOX (DS) TAB PO (08:36)
[2019-06-01] MEDS: DOCUSATE SODIUM 100 MG CAP PO ×2 (08:37→20:30)
[2019-06-01] MEDS: HYDROCODONE/APAP (5/325) TAB PO ×2 (13:05→21:48)
[2019-06-01] MEDS: DAKINS 0.0125%(1/40) 473 ML SOLUTION TP (16:57)
[2019-06-02] MEDS: MEROPENEM 1 GM/50ML(PMX) 50 ML IVPB ×3 (01:04→17:36)
[2019-06-02] MEDS: VANCOMYCIN HCL 1.25 GM in SOD CHLORIDE 0.9% 250 ML IVPB ×3 (05:54→20:37)
[2019-06-02] MEDS: morphine 2 MG INJ IV ×4 (05:54→17:42)
[2019-06-02] MEDS: DOCUSATE SODIUM 100 MG CAP PO ×2 (08:45→20:32)
[2019-06-02] MEDS: POLYETHYLENE GLYCOL 17 GM PACKET PO (08:46)
[2019-06-02] MEDS: ATROPINE 1% 5 ML OPH LEFT EYE ×2 (08:46→20:37)
[2019-06-02] MEDS: ASCORBIC ACID 500 MG TAB PO ×2 (08:46→20:31)
[2019-06-02] MEDS: MULTIVITAMINS/MINERALS TAB PO (08:46)
[2019-06-02] MEDS: ZINC SULFATE 220 MG CAP PO (08:46)
[2019-06-02] MEDS: TRIMETHOPRIM/SULFAMETHOX (DS) TAB PO (08:46)
[2019-06-02] MEDS: FLUCONAZOLE 100 MG TAB PO (08:46)
[2019-06-02] MEDS: PREDNISOLONE ACET 1% 5 ML OPH LEFT EYE (08:46)
[2019-06-02] MEDS: FAMOTIDINE 20 MG TAB PO ×2 (08:47→20:32)
[2019-06-02] MEDS: EMTRICITABINE/TENOFOVIR TAB PO (08:47)
[2019-06-02] MEDS: DAKINS 0.0125%(1/40) 473 ML SOLUTION TP (08:47)
[2019-06-02] MEDS: LAMIVUDINE/ZIDOVUDINE TAB PO ×2 (08:47→20:31)
[2019-06-02 13:47] LABS: VANCOMYCIN,TROUGH 15.6 ug/ml (10.0-20.0)
[2019-06-02] MEDS: HYDROCODONE/APAP (5/325) TAB PO (20:31)
[2019-06-03] MEDS: morphine 2 MG INJ IV ×7 (00:29→22:05)
[2019-06-03] MEDS: MEROPENEM 1 GM/50ML(PMX) 50 ML IVPB ×2 (01:00→10:16)
[2019-06-03] MEDS: VANCOMYCIN HCL 1.25 GM in SOD CHLORIDE 0.9% 250 ML IVPB ×3 (05:42→22:05)
[2019-06-03] MEDS: DOCUSATE SODIUM 100 MG CAP PO ×3 (09:00→21:00)
[2019-06-03] MEDS: POLYETHYLENE GLYCOL 17 GM PACKET PO ×2 (09:00→10:15)
[2019-06-03] MEDS: ZINC SULFATE 220 MG CAP PO (10:12)
[2019-06-03] MEDS: LAMIVUDINE/ZIDOVUDINE TAB PO (10:12)
[2019-06-03] MEDS: TRIMETHOPRIM/SULFAMETHOX (DS) TAB PO (10:12)
[2019-06-03] MEDS: FLUCONAZOLE 100 MG TAB PO (10:15)
[2019-06-03] MEDS: PREDNISOLONE ACET 1% 5 ML OPH LEFT EYE (10:15)
[2019-06-03] MEDS: FAMOTIDINE 20 MG TAB PO ×2 (10:15→22:04)
[2019-06-03] MEDS: EMTRICITABINE/TENOFOVIR TAB PO (10:15)
[2019-06-03] MEDS: ASCORBIC ACID 500 MG TAB PO ×2 (10:15→22:04)
[2019-06-03] MEDS: MULTIVITAMINS/MINERALS TAB PO (10:15)
[2019-06-03] MEDS: ATROPINE 1% 5 ML OPH LEFT EYE ×2 (10:15→22:04)
[2019-06-03] MEDS: DAKINS 0.0125%(1/40) 473 ML SOLUTION TP (10:17)
[2019-06-03] MEDS: morphine 4 MG/ML VIAL IV (11:59)
[2019-06-03] MEDS: CIPROFLOXACIN 500 MG TAB PO (17:29)
[2019-06-03] MEDS: ZIDOVUDINE 100 MG CAP PO (22:04)
[2019-06-04] MEDS: VANCOMYCIN HCL 1.25 GM in SOD CHLORIDE 0.9% 250 ML IVPB ×3 (06:11→22:27)
[2019-06-04] MEDS: CIPROFLOXACIN 500 MG TAB PO ×2 (06:11→17:34)
[2019-06-04 06:20] LABS: ADD MAN DIFF? NO
[2019-06-04 06:22] LABS: EOSINOPHILS # 0.2 10^3/ul (0.0-0.5); EOSINOPHILS % 5.7 % (0.0-7.0); HEMATOCRIT 25.6 % (42.0-52.0); HEMOGLOBIN 8.1 g/dl (14.0-18.0); LYMPHOCYTES % 25.1 % (15.0-51.0); MEAN CORPUSCULAR HEMOGLOBIN 27.3 pg (29.0-33.0); MEAN CORPUSCULAR HGB CONC 31.6 g/dl (32.0-37.0); MEAN CORPUSCULAR VOLUME 86.2 fl (82.0-101.0); MEAN PLATELET VOLUME 9.5 fl (7.4-10.4); MONOCYTE # 0.7 10^3/ul (0.3-0.9); MONOCYTES % 18.1 % (0.0-11.0); NEUTROPHIL # 1.9 10^3/ul (1.6-7.5); NEUTROPHILS % 49.8 % (39.0-77.0); PLATELET COUNT 521 10^3/UL (140-415); RED BLOOD COUNT 2.97 10^6/ul (4.70-6.10); RED CELL DISTRIBUTION WIDTH 16.6 % (11.5-14.5)
[2019-06-04 06:22] LABS: WHITE BLOOD COUNT 3.9 10^3/ul (4.8-10.8)
[2019-06-04] MEDS: morphine 2 MG INJ IV ×4 (06:34→20:47)
[2019-06-04 07:01] LABS: ANION GAP 5 (5-13); BLOOD UREA NITROGEN 13 mg/dl (7-20); CALCIUM 8.4 mg/dl (8.4-10.2); CARBON DIOXIDE 28 mmol/L (21-31); CHLORIDE 101 mmol/L (97-110); CREATININE 0.58 mg/dl (0.61-1.24); Estimated GFR > 60 mL/min (>60); GLUCOSE 94 mg/dl (70-220); POTASSIUM 4.3 mmol/L (3.5-5.1); SODIUM 134 mmol/L (135-144)
[2019-06-04] MEDS: PREDNISOLONE ACET 1% 5 ML OPH LEFT EYE (08:36)
[2019-06-04] MEDS: FAMOTIDINE 20 MG TAB PO ×2 (08:36→20:51)
[2019-06-04] MEDS: ZINC SULFATE 220 MG CAP PO (08:36)
[2019-06-04] MEDS: ASCORBIC ACID 500 MG TAB PO ×2 (08:36→20:51)
[2019-06-04] MEDS: FLUCONAZOLE 100 MG TAB PO (08:36)
[2019-06-04] MEDS: ATROPINE 1% 5 ML OPH LEFT EYE ×2 (08:36→20:50)
[2019-06-04] MEDS: TRIMETHOPRIM/SULFAMETHOX (DS) TAB PO (08:36)
[2019-06-04] MEDS: DOCUSATE SODIUM 100 MG CAP PO ×2 (08:37→20:51)
[2019-06-04] MEDS: MULTIVITAMINS/MINERALS TAB PO (08:37)
[2019-06-04] MEDS: POLYETHYLENE GLYCOL 17 GM PACKET PO (08:37)
[2019-06-04] MEDS: ZIDOVUDINE 100 MG CAP PO (09:39)
[2019-06-04] MEDS: EMTRICITABINE/TENOFOVIR TAB PO (09:39)
[2019-06-04] MEDS: DAKINS 0.0125%(1/40) 473 ML SOLUTION TP (17:48)
[2019-06-04] MEDS: HYDROCODONE/APAP (5/325) TAB PO (17:48)
[2019-06-04] MEDS: ZIDOVUDINE 300 MG TAB PO (20:50)
[2019-06-05] MEDS: morphine 2 MG INJ IV ×7 (00:22→21:33)
[2019-06-05] MEDS: CIPROFLOXACIN 500 MG TAB PO ×2 (05:32→18:15)
[2019-06-05] MEDS: VANCOMYCIN HCL 1.25 GM in SOD CHLORIDE 0.9% 250 ML IVPB (05:32)
[2019-06-05] MEDS: DOCUSATE SODIUM 100 MG CAP PO ×2 (09:00→21:00)
[2019-06-05] MEDS: POLYETHYLENE GLYCOL 17 GM PACKET PO (09:00)
[2019-06-05] MEDS: ASCORBIC ACID 500 MG TAB PO ×2 (09:10→20:57)
[2019-06-05] MEDS: EMTRICITABINE/TENOFOVIR TAB PO (09:11)
[2019-06-05] MEDS: TRIMETHOPRIM/SULFAMETHOX (DS) TAB PO (09:11)
[2019-06-05] MEDS: MULTIVITAMINS/MINERALS TAB PO (09:11)
[2019-06-05] MEDS: ZIDOVUDINE 300 MG TAB PO ×2 (09:11→20:57)
[2019-06-05] MEDS: ATROPINE 1% 5 ML OPH LEFT EYE ×2 (09:11→20:58)
[2019-06-05] MEDS: FLUCONAZOLE 100 MG TAB PO (09:11)
[2019-06-05] MEDS: ZINC SULFATE 220 MG CAP PO (09:11)
[2019-06-05] MEDS: PREDNISOLONE ACET 1% 5 ML OPH LEFT EYE (09:11)
[2019-06-05] MEDS: FAMOTIDINE 20 MG TAB PO ×2 (09:11→20:57)
[2019-06-05] MEDS: DOXYCYCLINE 100 MG TAB PO ×2 (12:42→19:32)
[2019-06-05] MEDS: DAKINS 0.0125%(1/40) 473 ML SOLUTION TP (16:34)
[2019-06-05] MEDS: CALCIUM CARBONATE 500 MG CHEW TAB PO (19:32)
[2019-06-06] MEDS: morphine 2 MG INJ IV (00:45)
[2019-06-06] MEDS: HYDROCODONE/APAP (5/325) TAB PO ×5 (03:06→20:06)
[2019-06-06] MEDS: CIPROFLOXACIN 500 MG TAB PO ×2 (06:42→17:41)
[2019-06-06] MEDS: DOCUSATE SODIUM 100 MG CAP PO ×2 (09:00→20:46)
[2019-06-06] MEDS: POLYETHYLENE GLYCOL 17 GM PACKET PO (09:00)
[2019-06-06] MEDS: FAMOTIDINE 20 MG TAB PO ×2 (09:54→20:46)
[2019-06-06] MEDS: ATROPINE 1% 5 ML OPH LEFT EYE ×2 (09:54→20:47)
[2019-06-06] MEDS: TRIMETHOPRIM/SULFAMETHOX (DS) TAB PO (09:54)
[2019-06-06] MEDS: ZIDOVUDINE 300 MG TAB PO ×2 (09:54→20:46)
[2019-06-06] MEDS: EMTRICITABINE/TENOFOVIR TAB PO (09:54)
[2019-06-06] MEDS: MULTIVITAMINS/MINERALS TAB PO (09:54)
[2019-06-06] MEDS: FLUCONAZOLE 100 MG TAB PO (09:54)
[2019-06-06] MEDS: ZINC SULFATE 220 MG CAP PO (09:54)
[2019-06-06] MEDS: PREDNISOLONE ACET 1% 5 ML OPH LEFT EYE (09:55)
[2019-06-06] MEDS: ASCORBIC ACID 500 MG TAB PO ×2 (09:58→20:46)
[2019-06-06] MEDS: DOXYCYCLINE 100 MG TAB PO ×2 (09:58→20:05)
[2019-06-06] MEDS: CALCIUM CARBONATE 500 MG CHEW TAB PO ×2 (12:47→19:38)
[2019-06-06] MEDS: DAKINS 0.0125%(1/40) 473 ML SOLUTION TP (15:51)
[2019-06-07] MEDS: HYDROCODONE/APAP (5/325) TAB PO ×5 (00:14→22:45)
[2019-06-07] MEDS: CIPROFLOXACIN 500 MG TAB PO ×2 (05:12→17:28)
[2019-06-07] MEDS: CALCIUM CARBONATE 500 MG CHEW TAB PO (06:29)
[2019-06-07] MEDS: DOXYCYCLINE 100 MG TAB PO ×2 (08:16→20:35)
[2019-06-07] MEDS: DOCUSATE SODIUM 100 MG CAP PO (09:00)
[2019-06-07] MEDS: POLYETHYLENE GLYCOL 17 GM PACKET PO (09:00)
[2019-06-07] MEDS: ENOXAPARIN 40 MG/0.4 ML SYG SC (09:00)
[2019-06-07] MEDS: TRIMETHOPRIM/SULFAMETHOX (DS) TAB PO (09:23)
[2019-06-07] MEDS: ASCORBIC ACID 500 MG TAB PO ×2 (09:23→20:35)
[2019-06-07] MEDS: MULTIVITAMINS/MINERALS TAB PO (09:23)
[2019-06-07] MEDS: FAMOTIDINE 20 MG TAB PO ×2 (09:23→20:35)
[2019-06-07] MEDS: EMTRICITABINE/TENOFOVIR TAB PO (09:24)
[2019-06-07] MEDS: ZINC SULFATE 220 MG CAP PO (09:24)
[2019-06-07] MEDS: ZIDOVUDINE 300 MG TAB PO ×2 (09:24→20:35)
[2019-06-07] MEDS: FLUCONAZOLE 100 MG TAB PO (09:25)
[2019-06-07] MEDS: PREDNISOLONE ACET 1% 5 ML OPH LEFT EYE (09:25)
[2019-06-07] MEDS: ATROPINE 1% 5 ML OPH LEFT EYE ×2 (09:25→20:35)
[2019-06-07] MEDS: DAKINS 0.0125%(1/40) 473 ML SOLUTION TP (09:29)
[2019-06-08] MEDS: HYDROCODONE/APAP (5/325) TAB PO ×4 (02:51→21:11)
[2019-06-08] MEDS: CIPROFLOXACIN 500 MG TAB PO (05:43)
[2019-06-08] MEDS: DOXYCYCLINE 100 MG TAB PO (07:54)
[2019-06-08] MEDS: EMTRICITABINE/TENOFOVIR TAB PO (08:31)
[2019-06-08] MEDS: MULTIVITAMINS/MINERALS TAB PO (08:31)
[2019-06-08] MEDS: ZIDOVUDINE 300 MG TAB PO ×2 (08:31→21:05)
[2019-06-08] MEDS: FLUCONAZOLE 100 MG TAB PO (08:31)
[2019-06-08] MEDS: TRIMETHOPRIM/SULFAMETHOX (DS) TAB PO (08:31)
[2019-06-08] MEDS: ZINC SULFATE 220 MG CAP PO (08:31)
[2019-06-08] MEDS: FAMOTIDINE 20 MG TAB PO (08:31)
[2019-06-08] MEDS: PREDNISOLONE ACET 1% 5 ML OPH LEFT EYE (08:32)
[2019-06-08] MEDS: ASCORBIC ACID 500 MG TAB PO ×2 (08:32→21:05)
[2019-06-08] MEDS: DAKINS 0.0125%(1/40) 473 ML SOLUTION TP (08:32)
[2019-06-08] MEDS: ATROPINE 1% 5 ML OPH LEFT EYE ×2 (08:32→21:06)
[2019-06-08] MEDS: ENOXAPARIN 40 MG/0.4 ML SYG SC (09:00)
[2019-06-08] MEDS: metroNIDAZOLE 500 MG TAB PO ×2 (12:17→21:05)
[2019-06-09] MEDS: metroNIDAZOLE 500 MG TAB PO ×3 (05:37→21:02)
[2019-06-09] MEDS: HYDROCODONE/APAP (5/325) TAB PO ×3 (05:37→21:02)
[2019-06-09 05:49] LABS: ADD MAN DIFF? NO
[2019-06-09 05:58] LABS: BASOPHIL # 0.1 10^3/ul (0.0-0.1); BASOPHILS % 1.4 % (0.0-2.0); EOSINOPHILS # 0.1 10^3/ul (0.0-0.5); EOSINOPHILS % 1.4 % (0.0-7.0); HEMATOCRIT 22.2 % (42.0-52.0); HEMOGLOBIN 7.3 g/dl (14.0-18.0); LYMPHOCYTES # 1.1 10^3/ul (0.8-2.9); LYMPHOCYTES % 28.8 % (15.0-51.0); MEAN CORPUSCULAR HEMOGLOBIN 27.7 pg (29.0-33.0); MEAN CORPUSCULAR HGB CONC 32.9 g/dl (32.0-37.0); MEAN CORPUSCULAR VOLUME 84.1 fl (82.0-101.0); MONOCYTE # 0.4 10^3/ul (0.3-0.9); MONOCYTES % 10.6 % (0.0-11.0); NEUTROPHIL # 2.1 10^3/ul (1.6-7.5); NEUTROPHILS % 57.5 % (39.0-77.0); PLATELET COUNT 644 10^3/UL (140-415); POSITIVE DIFF @See below; RED BLOOD COUNT 2.64 10^6/ul (4.70-6.10); RED CELL DISTRIBUTION WIDTH 15.8 % (11.5-14.5)
[2019-06-09 05:58] LABS: WHITE BLOOD COUNT 3.7 10^3/ul (4.8-10.8)
[2019-06-09 06:32] LABS: ALANINE AMINOTRANSFERASE 18 IU/L (13-69); ALBUMIN 3.2 g/dl (3.3-4.9); ALBUMIN/GLOBULIN RATIO 0.74; ALKALINE PHOSPHATASE 95 IU/L (42-121); ANION GAP 7 (5-13); ASPARTATE AMINO TRANSFERASE 29 IU/L (15-46); BILIRUBIN,INDIRECT 0.3 mg/dl (0-1.1); BILIRUBIN,TOTAL 0.3 mg/dl (0.2-1.3); BLOOD UREA NITROGEN 14 mg/dl (7-20); CALCIUM 8.8 mg/dl (8.4-10.2); CARBON DIOXIDE 26 mmol/L (21-31); CHLORIDE 102 mmol/L (97-110); CREATININE 0.78 mg/dl (0.61-1.24); Estimated GFR > 60 mL/min (>60); GLUCOSE 88 mg/dl (70-220); SODIUM 135 mmol/L (135-144); TOTAL PROTEIN 7.5 g/dl (6.1-8.1)
[2019-06-09 07:18] LABS: POTASSIUM 4.1 mmol/L (3.5-5.1)
[2019-06-09] MEDS: FAMOTIDINE 20 MG TAB PO (09:25)
[2019-06-09] MEDS: LACTOBACILLUS RHAMNOSUS CAP PO ×2 (09:25→21:02)
[2019-06-09] MEDS: EMTRICITABINE/TENOFOVIR TAB PO (09:25)
[2019-06-09] MEDS: TRIMETHOPRIM/SULFAMETHOX (DS) TAB PO (09:25)
[2019-06-09] MEDS: ASCORBIC ACID 500 MG TAB PO ×2 (09:25→21:02)
[2019-06-09] MEDS: MULTIVITAMINS/MINERALS TAB PO (09:25)
[2019-06-09] MEDS: ZIDOVUDINE 300 MG TAB PO ×2 (09:25→21:02)
[2019-06-09] MEDS: ZINC SULFATE 220 MG CAP PO (09:25)
[2019-06-09] MEDS: FLUCONAZOLE 100 MG TAB PO (09:25)
[2019-06-09] MEDS: ENOXAPARIN 40 MG/0.4 ML SYG SC (09:26)
[2019-06-09] MEDS: PREDNISOLONE ACET 1% 5 ML OPH LEFT EYE (09:26)
[2019-06-09] MEDS: ATROPINE 1% 5 ML OPH LEFT EYE ×2 (09:26→21:02)
[2019-06-09 10:02] LABS: ANISOCYTOSIS 1+ (0-0); BAND NEUTROPHILS #M 0.2 10^3/ul (0.0-0.6); BAND NEUTROPHILS % (M) 6 % (0-4); BASOPHILS % (M) 2 % (0-2); GIANT THROMBO% (M) 1 % (0-0); LYMPHOCYTES #M 1.1 10^3/ul (0.8-2.9); LYMPHOCYTES % (M) 32 % (15-51); MICROCYTOSIS 1+ (0-0); MONOCYTE #M 0.2 10^3/ul (0.3-0.9); MONOCYTES % (M) 8 % (0-11); PLATELET ESTIMATE INCREASED; POLYCHROMASIA 1+ (0-0); SEG NEUT #M 1.9 10^3/ul (1.6-7.5); SEGMENTED NEUTROPHILS (M) % 52 % (39-77); SMUDGE%M 14 % (0-0)
[2019-06-09 11:40] LABS: HEMATOCRIT 22.3 % (42.0-52.0); HEMOGLOBIN 7.2 g/dl (14.0-18.0)
[2019-06-09] MEDS: DAKINS 0.0125%(1/40) 473 ML SOLUTION TP (14:37)
[2019-06-09 14:55] LABS: IMMEDIATE SPIN CROSSMATCH 1 1
[2019-06-09] MEDS: morphine 2 MG INJ IV (17:52)
[2019-06-10] MEDS: metroNIDAZOLE 500 MG TAB PO (05:38)
[2019-06-10] MEDS: HYDROCODONE/APAP (5/325) TAB PO ×2 (05:38→21:03)
[2019-06-10 06:19] LABS: ADD MAN DIFF? NO; HAAIG REFLEX REFLEX FILED
[2019-06-10 06:26] LABS: WHITE BLOOD COUNT 4.5 10^3/ul (4.8-10.8)
[2019-06-10 06:26] LABS: BASOPHILS % 0.9 % (0.0-2.0); EOSINOPHILS % 0.7 % (0.0-7.0); HEMOGLOBIN 8.7 g/dl (14.0-18.0); LYMPHOCYTES % 22.5 % (15.0-51.0); MEAN CORPUSCULAR HEMOGLOBIN 28.4 pg (29.0-33.0); MEAN CORPUSCULAR HGB CONC 33.5 g/dl (32.0-37.0); MONOCYTE # 0.4 10^3/ul (0.3-0.9); MONOCYTES % 8.4 % (0.0-11.0); NEUTROPHIL # 3.1 10^3/ul (1.6-7.5); NEUTROPHILS % 67.1 % (39.0-77.0); PLATELET COUNT 593 10^3/UL (140-415); RED BLOOD COUNT 3.06 10^6/ul (4.70-6.10); RED CELL DISTRIBUTION WIDTH 15.9 % (11.5-14.5)
[2019-06-10 06:42] LABS: ANION GAP 7 (5-13); BLOOD UREA NITROGEN 14 mg/dl (7-20); CALCIUM 8.9 mg/dl (8.4-10.2); CARBON DIOXIDE 25 mmol/L (21-31); CHLORIDE 103 mmol/L (97-110); CREATININE 0.73 mg/dl (0.61-1.24); Estimated GFR > 60 mL/min (>60); GLUCOSE 95 mg/dl (70-220); MAGNESIUM 1.8 mg/dl (1.7-2.5); POTASSIUM 4.2 mmol/L (3.5-5.1); SODIUM 135 mmol/L (135-144)
[2019-06-10 06:50] LABS: ALANINE AMINOTRANSFERASE 18 IU/L (13-69); ALKALINE PHOSPHATASE 93 IU/L (42-121); ASPARTATE AMINO TRANSFERASE 29 IU/L (15-46); BILIRUBIN,INDIRECT 0.3 mg/dl (0-1.1); BILIRUBIN,TOTAL 0.3 mg/dl (0.2-1.3); TOTAL PROTEIN 6.9 g/dl (6.1-8.1)
[2019-06-10 07:22] LABS: HEPATITIS B SURFACE ANTIGEN NEGATIVE (NEGATIVE)
[2019-06-10 07:40] LABS: HEPATITIS C VIRAL ANTIBODY NEGATIVE (NEGATIVE)
[2019-06-10] MEDS: MULTIVITAMINS/MINERALS TAB PO (08:41)
[2019-06-10] MEDS: ZINC SULFATE 220 MG CAP PO (08:41)
[2019-06-10] MEDS: ASCORBIC ACID 500 MG TAB PO ×2 (08:41→20:57)
[2019-06-10] MEDS: FLUCONAZOLE 100 MG TAB PO (08:41)
[2019-06-10] MEDS: FAMOTIDINE 20 MG TAB PO (08:41)
[2019-06-10] MEDS: TRIMETHOPRIM/SULFAMETHOX (DS) TAB PO (08:41)
[2019-06-10] MEDS: LACTOBACILLUS RHAMNOSUS CAP PO ×2 (08:41→20:57)
[2019-06-10] MEDS: EMTRICITABINE/TENOFOVIR TAB PO (08:41)
[2019-06-10] MEDS: ZIDOVUDINE 300 MG TAB PO ×2 (08:41→20:57)
[2019-06-10] MEDS: ATROPINE 1% 5 ML OPH LEFT EYE ×2 (08:42→20:57)
[2019-06-10] MEDS: PREDNISOLONE ACET 1% 5 ML OPH LEFT EYE (08:42)
[2019-06-10] MEDS: DAKINS 0.0125%(1/40) 473 ML SOLUTION TP (08:43)
[2019-06-10 12:41] LABS: HEPATITIS B CORE ANTIBODY REACTIVE (NEGATIVE)
[2019-06-10 12:59] LABS: OCCULT BLOOD STOOL NEGATIVE (NEGATIVE)
[2019-06-11 05:40] LABS: ADD MAN DIFF? NO
[2019-06-11 05:44] LABS: BASOPHIL # 0.1 10^3/ul (0.0-0.1); BASOPHILS % 1.8 % (0.0-2.0); EOSINOPHILS % 0.7 % (0.0-7.0); HEMOGLOBIN 8.8 g/dl (14.0-18.0); LYMPHOCYTES # 1.3 10^3/ul (0.8-2.9); MEAN CORPUSCULAR HEMOGLOBIN 28.2 pg (29.0-33.0); MEAN CORPUSCULAR HGB CONC 32.6 g/dl (32.0-37.0); MEAN CORPUSCULAR VOLUME 86.5 fl (82.0-101.0); MONOCYTE # 0.6 10^3/ul (0.3-0.9); MONOCYTES % 13.1 % (0.0-11.0); NEUTROPHIL # 2.5 10^3/ul (1.6-7.5); NEUTROPHILS % 55.2 % (39.0-77.0); PLATELET COUNT 600 10^3/UL (140-415); RED BLOOD COUNT 3.12 10^6/ul (4.70-6.10); RED CELL DISTRIBUTION WIDTH 16.8 % (11.5-14.5)
[2019-06-11 05:44] LABS: WHITE BLOOD COUNT 4.5 10^3/ul (4.8-10.8)
[2019-06-11 06:08] LABS: MAGNESIUM 1.8 mg/dl (1.7-2.5)
[2019-06-11 06:08] LABS: PHOSPHORUS 5.3 mg/dl (2.5-4.9)
[2019-06-11 06:11] LABS: ANION GAP 6 (5-13); BLOOD UREA NITROGEN 19 mg/dl (7-20); CALCIUM 8.7 mg/dl (8.4-10.2); CARBON DIOXIDE 28 mmol/L (21-31); CHLORIDE 103 mmol/L (97-110); CREATININE 0.87 mg/dl (0.61-1.24); Estimated GFR > 60 mL/min (>60); GLUCOSE 95 mg/dl (70-220); POTASSIUM 4.6 mmol/L (3.5-5.1); SODIUM 137 mmol/L (135-144)
[2019-06-11] MEDS: EMTRICITABINE/TENOFOVIR TAB PO ×2 (09:00→10:49)
[2019-06-11] MEDS: ASCORBIC ACID 500 MG TAB PO ×2 (09:11→19:59)
[2019-06-11] MEDS: MULTIVITAMINS/MINERALS TAB PO (09:11)
[2019-06-11] MEDS: ZIDOVUDINE 300 MG TAB PO ×2 (09:11→19:59)
[2019-06-11] MEDS: ZINC SULFATE 220 MG CAP PO (09:11)
[2019-06-11] MEDS: FLUCONAZOLE 100 MG TAB PO (09:11)
[2019-06-11] MEDS: TRIMETHOPRIM/SULFAMETHOX (DS) TAB PO (09:11)
[2019-06-11] MEDS: LACTOBACILLUS RHAMNOSUS CAP PO ×2 (09:11→19:59)
[2019-06-11] MEDS: FAMOTIDINE 20 MG TAB PO (09:11)
[2019-06-11] MEDS: ATROPINE 1% 5 ML OPH LEFT EYE ×2 (09:52→19:59)
[2019-06-11] MEDS: PREDNISOLONE ACET 1% 5 ML OPH LEFT EYE (09:52)
[2019-06-11] MEDS: DAKINS 0.0125%(1/40) 473 ML SOLUTION TP (09:54)
[2019-06-11] MEDS: morphine 2 MG INJ IV ×2 (15:30→19:58)
[2019-06-12] MEDS: morphine 2 MG INJ IV ×5 (02:15→22:09)
[2019-06-12] MEDS: ZOLPIDEM 5 MG TAB PO (02:58)
[2019-06-12] MEDS: MULTIVITAMINS/MINERALS TAB PO (08:43)
[2019-06-12] MEDS: TRIMETHOPRIM/SULFAMETHOX (DS) TAB PO (08:43)
[2019-06-12] MEDS: ZINC SULFATE 220 MG CAP PO (08:43)
[2019-06-12] MEDS: ZIDOVUDINE 300 MG TAB PO ×2 (08:43→21:12)
[2019-06-12] MEDS: FLUCONAZOLE 100 MG TAB PO (08:43)
[2019-06-12] MEDS: LACTOBACILLUS RHAMNOSUS CAP PO ×2 (08:43→21:15)
[2019-06-12] MEDS: ASCORBIC ACID 500 MG TAB PO ×2 (08:43→21:12)
[2019-06-12] MEDS: FAMOTIDINE 20 MG TAB PO (08:43)
[2019-06-12] MEDS: EMTRICITABINE/TENOFOVIR TAB PO (08:43)
[2019-06-12] MEDS: ATROPINE 1% 5 ML OPH LEFT EYE ×2 (08:44→21:13)
[2019-06-12] MEDS: PREDNISOLONE ACET 1% 5 ML OPH LEFT EYE (08:44)
[2019-06-12] MEDS: DAKINS 0.0125%(1/40) 473 ML SOLUTION TP (17:44)
[2019-06-13] MEDS: ZOLPIDEM 5 MG TAB PO (01:35)
[2019-06-13] MEDS: FLUCONAZOLE 100 MG TAB PO (08:14)
[2019-06-13] MEDS: ZIDOVUDINE 300 MG TAB PO ×2 (08:14→21:51)
[2019-06-13] MEDS: LACTOBACILLUS RHAMNOSUS CAP PO ×2 (08:14→21:52)
[2019-06-13] MEDS: ASCORBIC ACID 500 MG TAB PO ×2 (08:14→21:51)
[2019-06-13] MEDS: ATROPINE 1% 5 ML OPH LEFT EYE ×2 (08:14→21:52)
[2019-06-13] MEDS: ZINC SULFATE 220 MG CAP PO (08:14)
[2019-06-13] MEDS: TRIMETHOPRIM/SULFAMETHOX (DS) TAB PO (08:14)
[2019-06-13] MEDS: MULTIVITAMINS/MINERALS TAB PO (08:14)
[2019-06-13] MEDS: EMTRICITABINE/TENOFOVIR TAB PO (08:14)
[2019-06-13] MEDS: FAMOTIDINE 20 MG TAB PO (08:14)
[2019-06-13] MEDS: PREDNISOLONE ACET 1% 5 ML OPH LEFT EYE (08:15)
[2019-06-13] MEDS: DAKINS 0.0125%(1/40) 473 ML SOLUTION TP (08:15)
[2019-06-13] MEDS: morphine 2 MG INJ IV ×4 (09:17→22:31)
[2019-06-14] MEDS: HYDROCODONE/APAP (5/325) TAB PO (01:56)
[2019-06-14] MEDS: ZOLPIDEM 5 MG TAB PO (02:12)
[2019-06-14] MEDS: LACTOBACILLUS RHAMNOSUS CAP PO ×2 (09:00→21:31)
[2019-06-14] MEDS: FLUCONAZOLE 100 MG TAB PO (09:00)
[2019-06-14] MEDS: FAMOTIDINE 20 MG TAB PO (09:00)
[2019-06-14] MEDS: MULTIVITAMINS/MINERALS TAB PO (09:00)
[2019-06-14] MEDS: ZIDOVUDINE 300 MG TAB PO ×2 (09:00→21:31)
[2019-06-14] MEDS: EMTRICITABINE/TENOFOVIR TAB PO (09:00)
[2019-06-14] MEDS: ASCORBIC ACID 500 MG TAB PO ×2 (09:00→21:31)
[2019-06-14] MEDS: ZINC SULFATE 220 MG CAP PO (09:00)
[2019-06-14] MEDS: ATROPINE 1% 5 ML OPH LEFT EYE ×2 (09:01→21:55)
[2019-06-14] MEDS: DAKINS 0.0125%(1/40) 473 ML SOLUTION TP (09:01)
[2019-06-14] MEDS: PREDNISOLONE ACET 1% 5 ML OPH LEFT EYE (09:01)
[2019-06-14] MEDS: TRIMETHOPRIM/SULFAMETHOX (DS) TAB PO (09:02)
[2019-06-14] MEDS: morphine 2 MG INJ IV ×2 (11:53→22:11)
[2019-06-14 14:38] LABS: ADD MAN DIFF? NO
[2019-06-14 14:41] LABS: BASOPHIL # 0.1 10^3/ul (0.0-0.1); BASOPHILS % 1.4 % (0.0-2.0); EOSINOPHILS % 0.9 % (0.0-7.0); HEMATOCRIT 25.4 % (42.0-52.0); HEMOGLOBIN 8.4 g/dl (14.0-18.0); LYMPHOCYTES # 1.6 10^3/ul (0.8-2.9); LYMPHOCYTES % 37.9 % (15.0-51.0); MEAN CORPUSCULAR HEMOGLOBIN 28.5 pg (29.0-33.0); MEAN CORPUSCULAR HGB CONC 33.1 g/dl (32.0-37.0); MEAN CORPUSCULAR VOLUME 86.1 fl (82.0-101.0); MEAN PLATELET VOLUME 8.8 fl (7.4-10.4); MONOCYTE # 0.5 10^3/ul (0.3-0.9); MONOCYTES % 11.8 % (0.0-11.0); NEUTROPHILS % 47.8 % (39.0-77.0); PLATELET COUNT 487 10^3/UL (140-415); RED BLOOD COUNT 2.95 10^6/ul (4.70-6.10); RED CELL DISTRIBUTION WIDTH 17.5 % (11.5-14.5)
[2019-06-14 14:41] LABS: WHITE BLOOD COUNT 4.2 10^3/ul (4.8-10.8)
[2019-06-14] MEDS: HYDROCORTISONE 2.5% 28.35 GM OINT TOP (14:43)
[2019-06-14 15:13] LABS: ANION GAP 7 (5-13); Estimated GFR > 60 mL/min (>60)
[2019-06-14 15:15] LABS: BLOOD UREA NITROGEN 13 mg/dl (7-20); CALCIUM 8.7 mg/dl (8.4-10.2); CARBON DIOXIDE 26 mmol/L (21-31); CHLORIDE 105 mmol/L (97-110); CREATININE 0.71 mg/dl (0.61-1.24); GLUCOSE 98 mg/dl (70-220); POTASSIUM 4.2 mmol/L (3.5-5.1); SODIUM 138 mmol/L (135-144)
[2019-06-14 15:49] LABS: PHOSPHORUS 4.5 mg/dl (2.5-4.9)
[2019-06-14 15:49] LABS: MAGNESIUM 1.7 mg/dl (1.7-2.5)
[2019-06-14] MEDS: morphine 4 MG/ML VIAL IV (16:22)
[2019-06-15] MEDS: ZOLPIDEM 5 MG TAB PO (00:43)
[2019-06-15] MEDS: ASCORBIC ACID 500 MG TAB PO ×2 (08:53→20:49)
[2019-06-15] MEDS: EMTRICITABINE/TENOFOVIR TAB PO (08:53)
[2019-06-15] MEDS: TRIMETHOPRIM/SULFAMETHOX (DS) TAB PO (08:53)
[2019-06-15] MEDS: ZIDOVUDINE 300 MG TAB PO ×2 (08:53→20:49)
[2019-06-15] MEDS: LACTOBACILLUS RHAMNOSUS CAP PO ×2 (08:53→20:49)
[2019-06-15] MEDS: PREDNISOLONE ACET 1% 5 ML OPH LEFT EYE (08:54)
[2019-06-15] MEDS: ZINC SULFATE 220 MG CAP PO (08:54)
[2019-06-15] MEDS: ATROPINE 1% 5 ML OPH LEFT EYE ×2 (08:54→20:49)
[2019-06-15] MEDS: FAMOTIDINE 20 MG TAB PO (08:54)
[2019-06-15] MEDS: DAKINS 0.0125%(1/40) 473 ML SOLUTION TP (08:55)
[2019-06-15] MEDS: FLUCONAZOLE 100 MG TAB PO (08:57)
[2019-06-15] MEDS: MULTIVITAMINS/MINERALS TAB PO (09:45)
[2019-06-15] MEDS: morphine 4 MG/ML VIAL IV (09:46)
[2019-06-15] MEDS: morphine 2 MG INJ IV ×2 (12:38→20:50)
[2019-06-15] MEDS: HYDROCODONE/APAP (5/325) TAB PO (16:04)
[2019-06-16] MEDS: ZOLPIDEM 5 MG TAB PO (01:42)
[2019-06-16] MEDS: ZINC SULFATE 220 MG CAP PO (08:45)
[2019-06-16] MEDS: ZIDOVUDINE 300 MG TAB PO ×2 (08:45→22:00)
[2019-06-16] MEDS: FAMOTIDINE 20 MG TAB PO (08:45)
[2019-06-16] MEDS: FLUCONAZOLE 100 MG TAB PO (08:45)
[2019-06-16] MEDS: MULTIVITAMINS/MINERALS TAB PO (08:45)
[2019-06-16] MEDS: LACTOBACILLUS RHAMNOSUS CAP PO ×2 (08:45→22:00)
[2019-06-16] MEDS: TRIMETHOPRIM/SULFAMETHOX (DS) TAB PO (08:45)
[2019-06-16] MEDS: DAKINS 0.0125%(1/40) 473 ML SOLUTION TP (08:46)
[2019-06-16] MEDS: ASCORBIC ACID 500 MG TAB PO ×2 (08:46→22:00)
[2019-06-16] MEDS: EMTRICITABINE/TENOFOVIR TAB PO (08:46)
[2019-06-16] MEDS: ATROPINE 1% 5 ML OPH LEFT EYE ×2 (08:47→22:01)
[2019-06-16] MEDS: PREDNISOLONE ACET 1% 5 ML OPH LEFT EYE (08:47)
[2019-06-16] MEDS: morphine 2 MG INJ IV ×3 (09:01→22:37)
[2019-06-16] MEDS: HYDROCODONE/APAP (5/325) TAB PO (10:08)
[2019-06-16] MEDS: morphine 4 MG/ML VIAL IV (11:17)
[2019-06-17] MEDS: ZOLPIDEM 5 MG TAB PO (01:37)
[2019-06-17] MEDS: ZIDOVUDINE 300 MG TAB PO ×2 (08:56→21:14)
[2019-06-17] MEDS: ZINC SULFATE 220 MG CAP PO (08:57)
[2019-06-17] MEDS: LACTOBACILLUS RHAMNOSUS CAP PO ×2 (08:57→21:14)
[2019-06-17] MEDS: MULTIVITAMINS/MINERALS TAB PO (08:57)
[2019-06-17] MEDS: FAMOTIDINE 20 MG TAB PO (08:57)
[2019-06-17] MEDS: ASCORBIC ACID 500 MG TAB PO ×2 (08:57→21:14)
[2019-06-17] MEDS: FLUCONAZOLE 100 MG TAB PO (08:57)
[2019-06-17] MEDS: EMTRICITABINE/TENOFOVIR TAB PO (08:57)
[2019-06-17] MEDS: TRIMETHOPRIM/SULFAMETHOX (DS) TAB PO (08:57)
[2019-06-17] MEDS: ATROPINE 1% 5 ML OPH LEFT EYE ×2 (08:58→21:13)
[2019-06-17] MEDS: PREDNISOLONE ACET 1% 5 ML OPH LEFT EYE (08:58)
[2019-06-17] MEDS: DAKINS 0.0125%(1/40) 473 ML SOLUTION TP ×3 (09:00→21:16)
[2019-06-17] MEDS: ENOXAPARIN 40 MG/0.4 ML SYG SC ×2 (09:00→09:02)
[2019-06-17] MEDS: morphine 4 MG/ML VIAL IV (09:56)
[2019-06-17] MEDS: morphine 2 MG INJ IV ×2 (15:32→21:16)
[2019-06-17] MEDS: HYDROCODONE/APAP (10/325) TAB PO (18:05)
[2019-06-18] MEDS: morphine 2 MG INJ IV ×2 (01:57→06:05)
[2019-06-18] MEDS: DAKINS 0.0125%(1/40) 473 ML SOLUTION TP ×6 (01:57→20:56)
[2019-06-18] MEDS: TRIMETHOPRIM/SULFAMETHOX (DS) TAB PO (08:03)
[2019-06-18] MEDS: FLUCONAZOLE 100 MG TAB PO (08:03)
[2019-06-18] MEDS: FAMOTIDINE 20 MG TAB PO (08:03)
[2019-06-18] MEDS: LACTOBACILLUS RHAMNOSUS CAP PO ×2 (08:03→21:06)
[2019-06-18] MEDS: ASCORBIC ACID 500 MG TAB PO ×2 (08:04→21:07)
[2019-06-18] MEDS: EMTRICITABINE/TENOFOVIR TAB PO (08:04)
[2019-06-18] MEDS: MULTIVITAMINS/MINERALS TAB PO (08:04)
[2019-06-18] MEDS: ZIDOVUDINE 300 MG TAB PO ×2 (08:04→21:06)
[2019-06-18] MEDS: ZINC SULFATE 220 MG CAP PO (08:05)
[2019-06-18] MEDS: ATROPINE 1% 5 ML OPH LEFT EYE ×2 (09:33→21:07)
[2019-06-18] MEDS: PREDNISOLONE ACET 1% 5 ML OPH LEFT EYE (09:33)
[2019-06-18 10:16] LABS: ADD MAN DIFF? NO
[2019-06-18 10:18] LABS: WHITE BLOOD COUNT 4.1 10^3/ul (4.8-10.8)
[2019-06-18 10:19] LABS: EOSINOPHILS # 0.1 10^3/ul (0.0-0.5); EOSINOPHILS % 1.5 % (0.0-7.0); HEMATOCRIT 27.8 % (42.0-52.0); HEMOGLOBIN 8.8 g/dl (14.0-18.0); LYMPHOCYTES # 1.2 10^3/ul (0.8-2.9); LYMPHOCYTES % 28.7 % (15.0-51.0); MEAN CORPUSCULAR HEMOGLOBIN 28.8 pg (29.0-33.0); MEAN CORPUSCULAR HGB CONC 31.7 g/dl (32.0-37.0); MEAN CORPUSCULAR VOLUME 90.8 fl (82.0-101.0); MONOCYTE # 0.4 10^3/ul (0.3-0.9); MONOCYTES % 9.2 % (0.0-11.0); NEUTROPHIL # 2.4 10^3/ul (1.6-7.5); NEUTROPHILS % 59.4 % (39.0-77.0); PLATELET COUNT 440 10^3/UL (140-415); RED BLOOD COUNT 3.06 10^6/ul (4.70-6.10); RED CELL DISTRIBUTION WIDTH 19.9 % (11.5-14.5)
[2019-06-18 10:40] LABS: INR 0.93; PROTIME 12.6 Sec (11.9-14.9)
[2019-06-18 10:42] LABS: ANION GAP 4 (5-13); BLOOD UREA NITROGEN 12 mg/dl (7-20); CALCIUM 8.9 mg/dl (8.4-10.2); CARBON DIOXIDE 30 mmol/L (21-31); CHLORIDE 103 mmol/L (97-110); CREATININE 0.72 mg/dl (0.61-1.24); Estimated GFR > 60 mL/min (>60); GLUCOSE 91 mg/dl (70-220); POTASSIUM 4.4 mmol/L (3.5-5.1); SODIUM 137 mmol/L (135-144)
[2019-06-18] MEDS: SOD CHLORIDE 0.9% 250 ML IV* (10:44)
[2019-06-18] MEDS ORDERED: MIDAZOLAM 1 MG/ML 2 ML INJ (11:40)
[2019-06-18] MEDS ORDERED: ROCURONIUM 50 MG INJ (11:40)
[2019-06-18] MEDS ORDERED: GENTAMICIN 80 MG/NS (PMX) 100 ML (11:59)
[2019-06-18] MEDS: POLYMYXIN/BACITRACIN 1L IRRIG (12:40)
[2019-06-18] MEDS: GENTAMICIN 80 MG INJ (12:40)
[2019-06-18] MEDS: MUPIROCIN 2% 15 GM CR (12:41)
[2019-06-18 13:01] LABS: IMMEDIATE SPIN CROSSMATCH 1 3
[2019-06-18] MEDS ORDERED: morphine 10 MG INJ (13:04)
[2019-06-18] MEDS: LIDOCAINE 1%/EPI 30 ML INJ ×2 (14:00→14:15)
[2019-06-18] MEDS: BUPIVACAINE 0.25% (MPF) 30 ML INJ ×2 (14:00→14:15)
[2019-06-18] MEDS ORDERED: KETOROLAC 30 MG INJ (15:29)
[2019-06-18] MEDS ORDERED: CEFAZOLIN 1 GM INJ (16:24)
[2019-06-18] MEDS ORDERED: PROPOFOL 20 ML (16:24)
[2019-06-18] MEDS ORDERED: LIDOCAINE 2% (SDV) 5 ML INJ (16:24)
[2019-06-18] MEDS ORDERED: ONDANSETRON 4 MG INJ (16:25)
[2019-06-18] MEDS ORDERED: MEPERIDINE 25 MG INJ (16:46)
[2019-06-18] MEDS ORDERED: FENTAnyl 50 MCG/ML VIAL IV (17:00)
[2019-06-18] MEDS ORDERED: ONDANSETRON 4 MG INJ IV (17:00)
[2019-06-18] MEDS ORDERED: METOCLOPRAMIDE 10 MG INJ IV (17:00)
[2019-06-18] MEDS ORDERED: HYDROmorphONE 1 MG/5 ML IV SYRINGE IV ×2 (17:00)
[2019-06-18] MEDS ORDERED: DIPHENHYDRAMINE 50 MG INJ (17:10)
[2019-06-18] MEDS: MEPERIDINE 25 MG INJ IV (17:19)
[2019-06-18] MEDS: DIPHENHYDRAMINE 50 MG INJ IV (17:19)
[2019-06-19] MEDS: DAKINS 0.0125%(1/40) 473 ML SOLUTION TP ×8 (00:47→23:06)
[2019-06-19] MEDS: morphine 2 MG INJ IV ×4 (07:37→21:23)
[2019-06-19] MEDS: MULTIVITAMINS/MINERALS TAB PO (09:35)
[2019-06-19] MEDS: ZIDOVUDINE 300 MG TAB PO ×2 (09:35→21:22)
[2019-06-19] MEDS: FAMOTIDINE 20 MG TAB PO (09:35)
[2019-06-19] MEDS: TRIMETHOPRIM/SULFAMETHOX (DS) TAB PO (09:35)
[2019-06-19] MEDS: EMTRICITABINE/TENOFOVIR TAB PO (09:35)
[2019-06-19] MEDS: LACTOBACILLUS RHAMNOSUS CAP PO ×2 (09:35→21:22)
[2019-06-19] MEDS: ASCORBIC ACID 500 MG TAB PO ×2 (09:35→21:22)
[2019-06-19] MEDS: ZINC SULFATE 220 MG CAP PO (09:35)
[2019-06-19] MEDS: FLUCONAZOLE 100 MG TAB PO (09:35)
[2019-06-19] MEDS: ATROPINE 1% 5 ML OPH LEFT EYE ×2 (09:36→21:21)
[2019-06-19] MEDS: PREDNISOLONE ACET 1% 5 ML OPH LEFT EYE (09:36)
[2019-06-19] MEDS: HYDROCODONE/APAP (10/325) TAB PO ×4 (10:03→21:21)
[2019-06-19 10:12] LABS: ADD MAN DIFF? NO
[2019-06-19 10:13] LABS: BASOPHILS % 0.2 % (0.0-2.0); HEMATOCRIT 26.3 % (42.0-52.0); HEMOGLOBIN 8.7 g/dl (14.0-18.0); LYMPHOCYTES # 1.2 10^3/ul (0.8-2.9); LYMPHOCYTES % 11.8 % (15.0-51.0); MEAN CORPUSCULAR HEMOGLOBIN 29.6 pg (29.0-33.0); MEAN CORPUSCULAR HGB CONC 33.1 g/dl (32.0-37.0); MEAN CORPUSCULAR VOLUME 89.5 fl (82.0-101.0); MONOCYTE # 0.6 10^3/ul (0.3-0.9); MONOCYTES % 5.7 % (0.0-11.0); NEUTROPHIL # 8.1 10^3/ul (1.6-7.5); NEUTROPHILS % 81.7 % (39.0-77.0); PLATELET COUNT 368 10^3/UL (140-415); RED BLOOD COUNT 2.94 10^6/ul (4.70-6.10); RED CELL DISTRIBUTION WIDTH 19.2 % (11.5-14.5)
[2019-06-19 10:13] LABS: WHITE BLOOD COUNT 9.9 10^3/ul (4.8-10.8)
[2019-06-19 10:33] LABS: ALANINE AMINOTRANSFERASE 19 IU/L (13-69); ALBUMIN 2.8 g/dl (3.3-4.9); ALBUMIN/GLOBULIN RATIO 0.84; ALKALINE PHOSPHATASE 69 IU/L (42-121); ANION GAP 4 (5-13); ASPARTATE AMINO TRANSFERASE 30 IU/L (15-46); BILIRUBIN,INDIRECT 0.7 mg/dl (0-1.1); BILIRUBIN,TOTAL 0.7 mg/dl (0.2-1.3); BLOOD UREA NITROGEN 13 mg/dl (7-20); CALCIUM 8.1 mg/dl (8.4-10.2); CARBON DIOXIDE 30 mmol/L (21-31); CHLORIDE 98 mmol/L (97-110); CREATININE 0.85 mg/dl (0.61-1.24); Estimated GFR > 60 mL/min (>60); GLUCOSE 148 mg/dl (70-220); POTASSIUM 4.7 mmol/L (3.5-5.1); SODIUM 132 mmol/L (135-144); TOTAL PROTEIN 6.1 g/dl (6.1-8.1)
[2019-06-20] MEDS: HYDROCODONE/APAP (10/325) TAB PO ×6 (02:04→20:49)
[2019-06-20] MEDS: morphine 2 MG INJ IV ×6 (02:04→22:21)
[2019-06-20] MEDS: DAKINS 0.0125%(1/40) 473 ML SOLUTION TP ×5 (09:00→21:00)
[2019-06-20] MEDS: ZINC SULFATE 220 MG CAP PO (09:02)
[2019-06-20] MEDS: EMTRICITABINE/TENOFOVIR TAB PO (09:02)
[2019-06-20] MEDS: FLUCONAZOLE 100 MG TAB PO (09:02)
[2019-06-20] MEDS: MULTIVITAMINS/MINERALS TAB PO (09:02)
[2019-06-20] MEDS: ZIDOVUDINE 300 MG TAB PO ×2 (09:02→20:49)
[2019-06-20] MEDS: ENOXAPARIN 40 MG/0.4 ML SYG SC (09:02)
[2019-06-20] MEDS: FAMOTIDINE 20 MG TAB PO (09:02)
[2019-06-20] MEDS: TRIMETHOPRIM/SULFAMETHOX (DS) TAB PO (09:02)
[2019-06-20] MEDS: LACTOBACILLUS RHAMNOSUS CAP PO ×2 (09:02→20:49)
[2019-06-20] MEDS: ATROPINE 1% 5 ML OPH LEFT EYE ×2 (09:03→20:51)
[2019-06-20] MEDS: ASCORBIC ACID 500 MG TAB PO ×2 (09:03→20:49)
[2019-06-20] MEDS: PREDNISOLONE ACET 1% 5 ML OPH LEFT EYE (09:03)
[2019-06-20] MEDS ORDERED: DOCUSATE SODIUM 100 MG CAP PO (12:00)
[2019-06-21] MEDS: DAKINS 0.0125%(1/40) 473 ML SOLUTION TP ×6 (00:30→21:00)
[2019-06-21] MEDS: HYDROCODONE/APAP (10/325) TAB PO ×5 (00:44→19:54)
[2019-06-21] MEDS: ZOLPIDEM 5 MG TAB PO (02:46)
[2019-06-21] MEDS: morphine 2 MG INJ IV ×5 (06:20→22:56)
[2019-06-21] MEDS: ENOXAPARIN 40 MG/0.4 ML SYG SC (08:26)
[2019-06-21] MEDS: LACTOBACILLUS RHAMNOSUS CAP PO ×2 (08:26→21:01)
[2019-06-21] MEDS: ZIDOVUDINE 300 MG TAB PO ×2 (08:26→21:01)
[2019-06-21] MEDS: ZINC SULFATE 220 MG CAP PO (08:26)
[2019-06-21] MEDS: TRIMETHOPRIM/SULFAMETHOX (DS) TAB PO (08:26)
[2019-06-21] MEDS: FLUCONAZOLE 100 MG TAB PO (08:27)
[2019-06-21] MEDS: ATROPINE 1% 5 ML OPH LEFT EYE ×2 (08:27→21:02)
[2019-06-21] MEDS: FAMOTIDINE 20 MG TAB PO (08:27)
[2019-06-21] MEDS: EMTRICITABINE/TENOFOVIR TAB PO (08:27)
[2019-06-21] MEDS: ASCORBIC ACID 500 MG TAB PO ×2 (08:27→21:01)
[2019-06-21] MEDS: MULTIVITAMINS/MINERALS TAB PO (08:27)
[2019-06-21] MEDS: PREDNISOLONE ACET 1% 5 ML OPH LEFT EYE (08:28)
[2019-06-21 08:59] LABS: ADD MAN DIFF? NO
[2019-06-21 09:14] LABS: WHITE BLOOD COUNT 6.4 10^3/ul (4.8-10.8)
[2019-06-21 09:14] LABS: BASOPHILS % 0.5 % (0.0-2.0); EOSINOPHILS # 0.1 10^3/ul (0.0-0.5); EOSINOPHILS % 1.6 % (0.0-7.0); HEMATOCRIT 26.5 % (42.0-52.0); HEMOGLOBIN 8.6 g/dl (14.0-18.0); LYMPHOCYTES # 0.9 10^3/ul (0.8-2.9); LYMPHOCYTES % 14.2 % (15.0-51.0); MEAN CORPUSCULAR HEMOGLOBIN 30.2 pg (29.0-33.0); MEAN CORPUSCULAR HGB CONC 32.5 g/dl (32.0-37.0); MONOCYTE # 0.3 10^3/ul (0.3-0.9); MONOCYTES % 4.9 % (0.0-11.0); NEUTROPHILS % 78.2 % (39.0-77.0); PLATELET COUNT 391 10^3/UL (140-415); RED BLOOD COUNT 2.85 10^6/ul (4.70-6.10); RED CELL DISTRIBUTION WIDTH 19.9 % (11.5-14.5)
[2019-06-21 09:16] LABS: ANION GAP 5 (5-13); BLOOD UREA NITROGEN 10 mg/dl (7-20); CALCIUM 8.9 mg/dl (8.4-10.2); CARBON DIOXIDE 32 mmol/L (21-31); CHLORIDE 97 mmol/L (97-110); CREATININE 0.67 mg/dl (0.61-1.24); Estimated GFR > 60 mL/min (>60); GLUCOSE 92 mg/dl (70-220); POTASSIUM 4.1 mmol/L (3.5-5.1); SODIUM 134 mmol/L (135-144)
[2019-06-21] MEDS: IBUPROFEN 800 MG TAB PO (21:01)
[2019-06-22] MEDS: ZOLPIDEM 5 MG TAB PO ×2 (00:24→22:20)
[2019-06-22] MEDS: DAKINS 0.0125%(1/40) 473 ML SOLUTION TP ×6 (01:00→21:00)
[2019-06-22] MEDS: MULTIVITAMINS/MINERALS TAB PO (10:16)
[2019-06-22] MEDS: EMTRICITABINE/TENOFOVIR TAB PO (10:16)
[2019-06-22] MEDS: TRIMETHOPRIM/SULFAMETHOX (DS) TAB PO (10:17)
[2019-06-22] MEDS: DULOXETINE 20 MG CAP DR PO (10:17)
[2019-06-22] MEDS: LACTOBACILLUS RHAMNOSUS CAP PO ×2 (10:17→20:42)
[2019-06-22] MEDS: ZINC SULFATE 220 MG CAP PO (10:17)
[2019-06-22] MEDS: FAMOTIDINE 20 MG TAB PO (10:17)
[2019-06-22] MEDS: IBUPROFEN 800 MG TAB PO ×3 (10:18→20:57)
[2019-06-22] MEDS: ZIDOVUDINE 300 MG TAB PO ×2 (10:18→20:41)
[2019-06-22] MEDS: FLUCONAZOLE 100 MG TAB PO (10:18)
[2019-06-22] MEDS: ASCORBIC ACID 500 MG TAB PO ×2 (10:19→20:41)
[2019-06-22] MEDS: ENOXAPARIN 40 MG/0.4 ML SYG SC (10:27)
[2019-06-22] MEDS: ATROPINE 1% 5 ML OPH LEFT EYE ×2 (10:28→20:43)
[2019-06-22] MEDS: PREDNISOLONE ACET 1% 5 ML OPH LEFT EYE (10:28)
[2019-06-22] MEDS: morphine 2 MG INJ IV ×4 (10:39→23:31)
[2019-06-22] MEDS: HYDROCODONE/APAP (10/325) TAB PO (20:42)
[2019-06-22] MEDS: IBUPROFEN 400 MG TAB PO (20:51)
[2019-06-23] MEDS: DAKINS 0.0125%(1/40) 473 ML SOLUTION TP ×4 (00:37→12:39)
[2019-06-23] MEDS: morphine 2 MG INJ IV ×5 (05:07→20:32)
[2019-06-23] MEDS: ZIDOVUDINE 300 MG TAB PO ×2 (08:07→20:31)
[2019-06-23] MEDS: EMTRICITABINE/TENOFOVIR TAB PO (08:08)
[2019-06-23] MEDS: ASCORBIC ACID 500 MG TAB PO ×2 (08:08→20:32)
[2019-06-23] MEDS: HYDROCODONE/APAP (10/325) TAB PO ×3 (08:08→20:31)
[2019-06-23] MEDS: DULOXETINE 20 MG CAP DR PO (08:08)
[2019-06-23] MEDS: ZINC SULFATE 220 MG CAP PO (08:09)
[2019-06-23] MEDS: FAMOTIDINE 20 MG TAB PO (08:09)
[2019-06-23] MEDS: MULTIVITAMINS/MINERALS TAB PO (08:09)
[2019-06-23] MEDS: FLUCONAZOLE 100 MG TAB PO (08:09)
[2019-06-23] MEDS: LACTOBACILLUS RHAMNOSUS CAP PO ×2 (08:09→20:32)
[2019-06-23] MEDS: IBUPROFEN 800 MG TAB PO ×3 (08:09→20:32)
[2019-06-23] MEDS: TRIMETHOPRIM/SULFAMETHOX (DS) TAB PO (08:09)
[2019-06-23] MEDS: ATROPINE 1% 5 ML OPH LEFT EYE ×2 (08:10→20:30)
[2019-06-23] MEDS: PREDNISOLONE ACET 1% 5 ML OPH LEFT EYE (08:10)
[2019-06-23] MEDS: ENOXAPARIN 40 MG/0.4 ML SYG SC (08:13)
[2019-06-23 09:35] LABS: ADD MAN DIFF? NO
[2019-06-23 09:39] LABS: WHITE BLOOD COUNT 4.2 10^3/ul (4.8-10.8)
[2019-06-23 09:39] LABS: BASOPHILS % 0.7 % (0.0-2.0); EOSINOPHILS # 0.1 10^3/ul (0.0-0.5); EOSINOPHILS % 1.4 % (0.0-7.0); HEMATOCRIT 27.3 % (42.0-52.0); HEMOGLOBIN 8.8 g/dl (14.0-18.0); MEAN CORPUSCULAR HEMOGLOBIN 29.6 pg (29.0-33.0); MEAN CORPUSCULAR HGB CONC 32.2 g/dl (32.0-37.0); MEAN CORPUSCULAR VOLUME 91.9 fl (82.0-101.0); MEAN PLATELET VOLUME 9.1 fl (7.4-10.4); MONOCYTE # 0.3 10^3/ul (0.3-0.9); MONOCYTES % 6.7 % (0.0-11.0); NEUTROPHIL # 2.8 10^3/ul (1.6-7.5); PLATELET COUNT 483 10^3/UL (140-415); RED BLOOD COUNT 2.97 10^6/ul (4.70-6.10)
[2019-06-23 09:59] LABS: ALANINE AMINOTRANSFERASE 14 IU/L (13-69); ALBUMIN 3.2 g/dl (3.3-4.9); ALKALINE PHOSPHATASE 80 IU/L (42-121); ANION GAP 5 (5-13); ASPARTATE AMINO TRANSFERASE 23 IU/L (15-46); BILIRUBIN,INDIRECT 0.3 mg/dl (0-1.1); BILIRUBIN,TOTAL 0.3 mg/dl (0.2-1.3); BLOOD UREA NITROGEN 14 mg/dl (7-20); CALCIUM 8.9 mg/dl (8.4-10.2); CARBON DIOXIDE 28 mmol/L (21-31); CHLORIDE 102 mmol/L (97-110); CREATININE 0.62 mg/dl (0.61-1.24); Estimated GFR > 60 mL/min (>60); GLUCOSE 91 mg/dl (70-220); POTASSIUM 4.6 mmol/L (3.5-5.1); SODIUM 135 mmol/L (135-144); TOTAL PROTEIN 7.2 g/dl (6.1-8.1)
[2019-06-23 10:09] LABS: PREALBUMIN 26.1 mg/dl (17.6-36.0)
[2019-06-23] MEDS: ONDANSETRON 4 MG INJ IV (12:54)
[2019-06-24] MEDS: morphine 2 MG INJ IV ×6 (00:04→22:31)
[2019-06-24] MEDS: ZOLPIDEM 5 MG TAB PO (00:37)
[2019-06-24] MEDS: HYDROCODONE/APAP (10/325) TAB PO ×5 (05:25→20:22)
[2019-06-24] MEDS: ATROPINE 1% 5 ML OPH LEFT EYE ×2 (08:36→20:25)
[2019-06-24] MEDS: PREDNISOLONE ACET 1% 5 ML OPH LEFT EYE (08:38)
[2019-06-24] MEDS: LACTOBACILLUS RHAMNOSUS CAP PO ×2 (10:08→20:22)
[2019-06-24] MEDS: ZIDOVUDINE 300 MG TAB PO ×2 (10:08→20:22)
[2019-06-24] MEDS: DULOXETINE 20 MG CAP DR PO (10:08)
[2019-06-24] MEDS: MULTIVITAMINS/MINERALS TAB PO (10:08)
[2019-06-24] MEDS: FAMOTIDINE 20 MG TAB PO (10:09)
[2019-06-24] MEDS: ASCORBIC ACID 500 MG TAB PO ×2 (10:09→20:22)
[2019-06-24] MEDS: FLUCONAZOLE 100 MG TAB PO (10:09)
[2019-06-24] MEDS: EMTRICITABINE/TENOFOVIR TAB PO (10:09)
[2019-06-24] MEDS: ZINC SULFATE 220 MG CAP PO (10:09)
[2019-06-24] MEDS: TRIMETHOPRIM/SULFAMETHOX (DS) TAB PO (10:09)
[2019-06-24] MEDS: DAKINS 0.0125%(1/40) 473 ML SOLUTION TP (10:10)
[2019-06-24] MEDS: ENOXAPARIN 40 MG/0.4 ML SYG SC (10:12)
[2019-06-25] MEDS: ZOLPIDEM 5 MG TAB PO (00:23)
[2019-06-25] MEDS: morphine 2 MG INJ IV ×4 (05:43→21:23)
[2019-06-25] MEDS: DULOXETINE 20 MG CAP DR PO (10:06)
[2019-06-25] MEDS: FLUCONAZOLE 100 MG TAB PO (10:06)
[2019-06-25] MEDS: MULTIVITAMINS/MINERALS TAB PO (10:06)
[2019-06-25] MEDS: EMTRICITABINE/TENOFOVIR TAB PO (10:06)
[2019-06-25] MEDS: ZINC SULFATE 220 MG CAP PO (10:06)
[2019-06-25] MEDS: LACTOBACILLUS RHAMNOSUS CAP PO ×2 (10:06→20:21)
[2019-06-25] MEDS: ZIDOVUDINE 300 MG TAB PO ×2 (10:06→20:21)
[2019-06-25] MEDS: TRIMETHOPRIM/SULFAMETHOX (DS) TAB PO (10:06)
[2019-06-25] MEDS: ATROPINE 1% 5 ML OPH LEFT EYE ×2 (10:07→20:22)
[2019-06-25] MEDS: ASCORBIC ACID 500 MG TAB PO ×2 (10:07→20:21)
[2019-06-25] MEDS: PREDNISOLONE ACET 1% 5 ML OPH LEFT EYE (10:07)
[2019-06-25] MEDS: FAMOTIDINE 20 MG TAB PO (10:07)
[2019-06-25] MEDS: DAKINS 0.0125%(1/40) 473 ML SOLUTION TP (10:08)
[2019-06-25] MEDS: ENOXAPARIN 40 MG/0.4 ML SYG SC (10:16)
[2019-06-25] MEDS: HYDROCODONE/APAP (10/325) TAB PO ×3 (11:10→20:21)
[2019-06-25] MEDS: morphine 4 MG/ML VIAL IV (13:44)
[2019-06-26] MEDS: morphine 2 MG INJ IV ×6 (01:30→21:42)
[2019-06-26] MEDS: ZOLPIDEM 5 MG TAB PO ×2 (01:35→22:44)
[2019-06-26] MEDS: TRIMETHOPRIM/SULFAMETHOX (DS) TAB PO (08:59)
[2019-06-26] MEDS: MULTIVITAMINS/MINERALS TAB PO (08:59)
[2019-06-26] MEDS: ZIDOVUDINE 300 MG TAB PO ×2 (08:59→20:35)
[2019-06-26] MEDS: FLUCONAZOLE 100 MG TAB PO (08:59)
[2019-06-26] MEDS: ASCORBIC ACID 500 MG TAB PO ×2 (08:59→20:35)
[2019-06-26] MEDS: LACTOBACILLUS RHAMNOSUS CAP PO ×2 (08:59→20:35)
[2019-06-26] MEDS: ZINC SULFATE 220 MG CAP PO (08:59)
[2019-06-26] MEDS: DULOXETINE 20 MG CAP DR PO (08:59)
[2019-06-26] MEDS: EMTRICITABINE/TENOFOVIR TAB PO (09:00)
[2019-06-26] MEDS: FAMOTIDINE 20 MG TAB PO (09:00)
[2019-06-26] MEDS: PREDNISOLONE ACET 1% 5 ML OPH LEFT EYE (09:00)
[2019-06-26] MEDS: ATROPINE 1% 5 ML OPH LEFT EYE ×2 (09:01→20:35)
[2019-06-26] MEDS: ENOXAPARIN 40 MG/0.4 ML SYG SC (09:02)
[2019-06-26] MEDS: HYDROCODONE/APAP (10/325) TAB PO ×4 (11:15→23:34)
[2019-06-26] MEDS: DAKINS 0.0125%(1/40) 473 ML SOLUTION TP (11:17)
[2019-06-26] MEDS: morphine 4 MG/ML VIAL IV (12:10)
[2019-06-27] MEDS: morphine 2 MG INJ IV ×6 (02:01→23:23)
[2019-06-27] MEDS: ZINC SULFATE 220 MG CAP PO (08:44)
[2019-06-27] MEDS: FAMOTIDINE 20 MG TAB PO (08:45)
[2019-06-27] MEDS: MULTIVITAMINS/MINERALS TAB PO (08:45)
[2019-06-27] MEDS: FLUCONAZOLE 100 MG TAB PO (08:45)
[2019-06-27] MEDS: ASCORBIC ACID 500 MG TAB PO ×2 (08:45→21:07)
[2019-06-27] MEDS: LACTOBACILLUS RHAMNOSUS CAP PO ×2 (08:45→21:08)
[2019-06-27] MEDS: TRIMETHOPRIM/SULFAMETHOX (DS) TAB PO (08:46)
[2019-06-27] MEDS: ZIDOVUDINE 300 MG TAB PO ×2 (08:46→21:07)
[2019-06-27] MEDS: DULOXETINE 20 MG CAP DR PO (08:46)
[2019-06-27] MEDS: EMTRICITABINE/TENOFOVIR TAB PO (08:46)
[2019-06-27] MEDS: ATROPINE 1% 5 ML OPH LEFT EYE ×2 (08:47→21:08)
[2019-06-27] MEDS: PREDNISOLONE ACET 1% 5 ML OPH LEFT EYE (08:47)
[2019-06-27] MEDS: DAKINS 0.0125%(1/40) 473 ML SOLUTION TP (08:52)
[2019-06-27] MEDS: ENOXAPARIN 40 MG/0.4 ML SYG SC (08:56)
[2019-06-27] MEDS: HYDROCODONE/APAP (10/325) TAB PO ×4 (09:54→21:07)
[2019-06-27] MEDS: morphine 4 MG/ML VIAL IV (12:59)
[2019-06-27] MEDS: ZOLPIDEM 5 MG TAB PO (21:51)
[2019-06-28] MEDS: HYDROCODONE/APAP (10/325) TAB PO ×5 (01:06→19:16)
[2019-06-28] MEDS: morphine 2 MG INJ IV ×5 (04:00→21:00)
[2019-06-28] MEDS: MULTIVITAMINS/MINERALS TAB PO (09:13)
[2019-06-28] MEDS: LACTOBACILLUS RHAMNOSUS CAP PO ×2 (09:13→20:58)
[2019-06-28] MEDS: DULOXETINE 20 MG CAP DR PO (09:13)
[2019-06-28] MEDS: FAMOTIDINE 20 MG TAB PO (09:14)
[2019-06-28] MEDS: ZINC SULFATE 220 MG CAP PO (09:14)
[2019-06-28] MEDS: EMTRICITABINE/TENOFOVIR TAB PO (09:14)
[2019-06-28] MEDS: ASCORBIC ACID 500 MG TAB PO ×2 (09:14→20:58)
[2019-06-28] MEDS: TRIMETHOPRIM/SULFAMETHOX (DS) TAB PO (09:14)
[2019-06-28] MEDS: ZIDOVUDINE 300 MG TAB PO ×2 (09:14→20:58)
[2019-06-28] MEDS: ATROPINE 1% 5 ML OPH LEFT EYE ×2 (09:15→20:57)
[2019-06-28] MEDS: FLUCONAZOLE 100 MG TAB PO (09:15)
[2019-06-28] MEDS: PREDNISOLONE ACET 1% 5 ML OPH LEFT EYE (09:15)
[2019-06-28] MEDS: ENOXAPARIN 40 MG/0.4 ML SYG SC (09:16)
[2019-06-28] MEDS: DAKINS 0.0125%(1/40) 473 ML SOLUTION TP (09:19)
[2019-06-28] MEDS: morphine 4 MG/ML VIAL IV (10:41)
[2019-06-28] MEDS: ZOLPIDEM 5 MG TAB PO (21:53)
[2019-06-29] MEDS: morphine 2 MG INJ IV ×2 (00:27→04:48)
[2019-06-29] MEDS: ZINC SULFATE 220 MG CAP PO (09:12)
[2019-06-29] MEDS: LACTOBACILLUS RHAMNOSUS CAP PO (09:12)
[2019-06-29] MEDS: ZIDOVUDINE 300 MG TAB PO (09:12)
[2019-06-29] MEDS: HYDROCODONE/APAP (10/325) TAB PO ×2 (09:12→12:51)
[2019-06-29] MEDS: FLUCONAZOLE 100 MG TAB PO (09:12)
[2019-06-29] MEDS: ATROPINE 1% 5 ML OPH LEFT EYE (09:13)
[2019-06-29] MEDS: TRIMETHOPRIM/SULFAMETHOX (DS) TAB PO (09:13)
[2019-06-29] MEDS: FAMOTIDINE 20 MG TAB PO (09:13)
[2019-06-29] MEDS: ASCORBIC ACID 500 MG TAB PO (09:13)
[2019-06-29] MEDS: DULOXETINE 20 MG CAP DR PO (09:13)
[2019-06-29] MEDS: EMTRICITABINE/TENOFOVIR TAB PO (09:13)
[2019-06-29] MEDS: MULTIVITAMINS/MINERALS TAB PO (09:13)
[2019-06-29] MEDS: PREDNISOLONE ACET 1% 5 ML OPH LEFT EYE (09:14)
[2019-06-29] MEDS: ENOXAPARIN 40 MG/0.4 ML SYG SC (09:18)
[2019-06-29] MEDS: morphine 4 MG/ML VIAL IV (10:17)
[2019-06-29] MEDS: DAKINS 0.0125%(1/40) 473 ML SOLUTION TP (10:18)
== END 2019-06-29 14:25 | disposition home health service (06) | DRG 969 ==
LOC: PP2 05-20 19:30 → 2NE 06-10 14:00 → E/R 16:45 → SDS 19:55 → ICU 20:47
PROC: 0VB70ZZ Excision of Left Tunica Vaginalis, Open Approach (ICD-10-PCS; principal; 2019-05-14 20:00)
PROC: 0VBSXZZ Excision of Penis, External Approach (ICD-10-PCS; 2019-05-14 20:00)
PROC: 0HBAXZZ Excision of Inguinal Skin, External Approach (ICD-10-PCS; 2019-05-14 20:00)
PROC: 0HB9XZZ Excision of Perineum Skin, External Approach (ICD-10-PCS; 2019-05-14 20:00)
PROC: 0VB5XZZ Excision of Scrotum, External Approach (ICD-10-PCS; 2019-05-14 20:00)
PROC: 0JBC0ZZ Excision of Pelvic Region Subcutaneous Tissue and Fascia, Open Approach (ICD-10-PCS; 2019-05-14 20:20)
PROC: 0JB80ZZ Excision of Abdomen Subcutaneous Tissue and Fascia, Open Approach (ICD-10-PCS; 2019-05-14 20:20)
PROC: 0JB60ZZ Excision of Chest Subcutaneous Tissue and Fascia, Open Approach (ICD-10-PCS; 2019-05-14 20:20)
PROC: 0JBM0ZZ Excision of Left Upper Leg Subcutaneous Tissue and Fascia, Open Approach (ICD-10-PCS; 2019-05-14 20:20)
PROC: 0JB60ZZ Excision of Chest Subcutaneous Tissue and Fascia, Open Approach (ICD-10-PCS; 2019-05-14 20:20)
PROC: 0JB90ZZ Excision of Buttock Subcutaneous Tissue and Fascia, Open Approach (ICD-10-PCS; 2019-05-14 20:20)
PROC: 0KBL0ZZ Excision of Left Abdomen Muscle, Open Approach (ICD-10-PCS; 2019-05-14 20:20)
PROC: 0KXG0ZZ Transfer Left Trunk Muscle, Open Approach (ICD-10-PCS; 2019-05-14 20:20)
PROC: 0JX80ZC Transfer Abdomen Subcutaneous Tissue and Fascia with Skin, Subcutaneous Tissue and Fascia, Open Approach (ICD-10-PCS; 2019-05-14 20:20)
PROC: 0JXM0ZC Transfer Left Upper Leg Subcutaneous Tissue and Fascia with Skin, Subcutaneous Tissue and Fascia, Open Approach (ICD-10-PCS; 2019-05-14 20:20)
PROC: 0JXL0ZC Transfer Right Upper Leg Subcutaneous Tissue and Fascia with Skin, Subcutaneous Tissue and Fascia, Open Approach (ICD-10-PCS; 2019-05-14 20:20)
PROC: 5A1945Z Respiratory Ventilation, 24-96 Consecutive Hours (ICD-10-PCS; 2019-05-14 20:20)
PROC: 0JJW0ZZ Inspection of Lower Extremity Subcutaneous Tissue and Fascia, Open Approach (ICD-10-PCS; 2019-05-14 20:20)
PROC: 0JJW0ZZ Inspection of Lower Extremity Subcutaneous Tissue and Fascia, Open Approach (ICD-10-PCS; 2019-05-14 20:20)
PROC: 0VB5XZZ Excision of Scrotum, External Approach (ICD-10-PCS; 2019-05-14 20:20)
PROC: 30233N1 Transfusion of Nonautologous Red Blood Cells into Peripheral Vein, Percutaneous Approach (ICD-10-PCS; 2019-05-14 20:20)
PROC: 02HV33Z Insertion of Infusion Device into Superior Vena Cava, Percutaneous Approach (ICD-10-PCS; 2019-05-14 20:20)
DX: A41.9 Sepsis, unspecified organism (principal); M72.6 Necrotizing fasciitis; B20 Human immunodeficiency virus [HIV] disease; T80.219A Unspecified infection due to central venous catheter, initial encounter; N17.0 Acute kidney failure with tubular necrosis; G92 Toxic encephalopathy; B19.10 Unspecified viral hepatitis B without hepatic coma; L02.31 Cutaneous abscess of buttock; I96 Gangrene, not elsewhere classified; E87.2 Acidosis; E22.2 Syndrome of inappropriate secretion of antidiuretic hormone; N49.3 Fournier gangrene; R65.20 Severe sepsis without septic shock; B95.62 Methicillin resistant Staphylococcus aureus infection as the cause of diseases classified elsewhere; D64.9 Anemia, unspecified; F10.10 Alcohol abuse, uncomplicated; F19.10 Other psychoactive substance abuse, uncomplicated; H54.62 Unqualified visual loss, left eye, normal vision right eye; R60.1 Generalized edema; Z87.891 Personal history of nicotine dependence
CPT/HCPCS: 36415; 36430; 36569; 36600; 70551; 71045; 74176; 74177; 80048; 80053; 80076; 80202; 80307; 81001; 81003; 82043; 82270; 82533; 82565; 82728; 82803; 82962; 83540; 83605; 83735; 83935; 84100; 84134; 84155; 84300; 84484; 84520; 85014; 85018; 85025; 85610; 85730; 86360; 86644; 86701; 86703; 86704; 86709; 86803; 86850; 86900; 86901; 86920; 87040-91; 87070; 87075; 87086; 87102; 87116; 87340; 87536; 88304; 93005; 94002; 94770; 96374; 96375; 97110; 97161; 97164; 99285-25